=== PATIENT | female | born 1950 | race Caucasian/White ===

== ENCOUNTER → 2017-05-18 | Outpatient (CLI) | payer OTHER, BC ==
[~2017-05-18] MED LIST: ACT35; BP MED UNKNOWN; LOVA20TA4; MELO7.5T5; TRAM-10; [UNRECOGNIZED DRUG - OTHER]
--- NOTE | 2017-05-19 14:10 | MAMMOGRAPHY REPORT ---
BILATERAL DIGITAL SCREENING MAMMOGRAM TOMOSYNTHESIS WITH CAD: 05/18/2017 CLINICAL HISTORY: Routine screening. TECHNIQUE: Breast tomosynthesis in addition to standard 2D mammography was performed. Current study was also evaluated with a Computer Aided Detection (CAD) system. COMPARISON: Comparison is made to exams dated: 05/15/2016 mammogram, 05/13/2015 mammogram, 4 mammogram, 05/09/2013 mammogram, 05/03/2012 mammogram, and 04/22/2011 mammogram - [facility]. BREAST COMPOSITION: There are scattered areas of fibroglandular density in both breasts. FINDINGS: There are stable benign-appearing microcalcifications in the superior left breast. No susp icious mass, architectural distortion or cluster of suspicious microcalcifications is seen. IMPRESSION: ACR BI-RADS CATEGORY 1: NEGATIVE There is no mammographic evidence of malignancy. A 1 year screening mammogram is recommended. The pa tient will receive written notification of the results. Approximately 10% of breast cancers are not detected with mammography. A negative mammographic report should not delay biopsy if a clinically suggestive mass is present. Nadine Sawant M.D. ay/:05/18/2017 16:30:49 Production Control Analyst: Coy ARMENDARIZ(R)(M), [facility] letter sent: Normal 1/2 BI-RADS Code: ACR BI-RADS Category 1: Negative
== END | disposition home or self-care (01) ==
LOC: C.MAMM 10:11
PROVIDERS: ATTEND Family Medicine
DX: Z12.31 Encounter for screening mammogram for malignant neoplasm of breast (principal)

== ENCOUNTER 2024-04-29 09:20 | Inpatient (IN) ==
--- OUTSIDE RECORDS SUMMARY | 2024-04-29 09:27 | External Medical Summary | Summary of Care ---
Author Name Unknown Organization [facility] Address [address] [place] [address] Phone [phone] Care Team Providers Care Geriatrician Name Role Phone Wiley Hernandez MD Primary Care Provider Reason for Referral * Evaluate & Treat - Unlimited Visits (Within 10 days (routine)) - Authorized Specialty Diagnoses / Procedures Referred By Louis montero Referred To Contact Gastroenterology Diagnoses Pancreatitis Delores Fraser MD [address] [place] [id number] Phone: tel: fax: Josefina Miramontes, DO [address] [place] [address] Phone: tel: fax: Referral ID Status Reason Start Date Expiration Date Visits Requested Visits Authorized [id number] Authorized Specialty Services Required 4 [phone] Question Answer Referral Priority Within 10 days (routine) Where should this appointment be scheduled? [facility] For what condition is the patient being referred? All Gastro Conditions Comments Pancreatitis / stone Encounter Details Date Type Department Care Team (Late st Contact Info) Description 04/25/2024 Orders Only Access [facility], [address] *DO NOT REMOVE THIS DEPARTMENT* [place] [id number] Request, External Referral Pancreatitis* Allergies Active Allergy Reactions Criticality Noted Date Comments Adhesive Tape Rash 07/17/2013 documented as of this encounter (statuses as of 04/25/2024) Medications BENAZEPRIL-HYDR OCHLOROTHIAZIDE 20-25 MG PO TABS one pill each day Active AMLODIPINE BESYLATE 5 MG PO TABS one pill each day Active TEMAZEPAM 30 MG PO CAPS one pill each day at bedtime as needed Active triamcinolone acetonide (ARISTOCORT) 0.1 % cream Apply 1 Application Dosing Unit topically to affected area 2 times a day as needed. Active documented as of this encounter (statuses as of 04/25/2024) Active Problems Problem Noted Date Diagnosed Date Benign neoplasm of colon 06/07/2007 Overview (06/13/2007): adenomatous polyps--repeat 5 years Dyslipidemia, goal to be determined Menopause Contact dermatitis and other eczema due to other specified agent Overview (05/11/2007): non healing, scaling and blanching area on LLE-stable for 1 yr documented as of this encounter (statuses as of 04/25/2024) Resolved Problems Problem Noted Date Diagnosed Date Resolved Date ADVANCE DIRECTIVE INFORMATION 06/09/2006 04/03/2024 Overview (06/09/2006): No, Advance Directive brochure given to patient. documented as of this encounter (statuses as of 04/25/2024) Immunizations Name Administration Dates Next Due COVID-19 mRNA, LNP-s, No Pre serve, 2-Dose Series (Moderna) 07/31/2020,07/03/2020 documented as of this encounter Social History Tobacco Use Types Packs/Day Years Used Date Smoking Tobacco: Every Day Cigarettes 1 40 Alcohol Use Standard Drinks/Week Comments No 0 (1 standard drink = 0.6 oz pur e alcohol) Comments No Sex and Gender Information Value Date Recorded Sex Assigned at Not on file Legal Sex Female 5:56 AM EST Gender Identity Not on file Sexual Orientation Not on file documented as of this encounter Plan of Treatment Scheduled Procedures Name Priority Associated Diagnoses Date/Ti me COLONOSCOPY FLEXIBLE PROXIMAL DIAGNOSTIC Recall History of colon polyps Scheduled Referrals Name Type Priority Associated Diagnoses Order Schedule ADULT GASTROENTEROLOGY REFERRAL OP Referral Within 10 days (routine) Pancreatitis Ordered: 04/25/2024 Health Maintenance Due Date Last Done Comments Depression Screening 1960 Hepatitis C Screening 1966 DTap/Tdap Vaccines (1 - Tdap) 12/22/1967 Lung Cancer Screening 1998 DXA Scan 04/03/2011 04/03/2004 Colonoscopy 08/25/2023 08/24/2018, 07/30, 07/17/2013, Additional history exists COVID-19 Vaccine ( season) 2024 07/31/2020, 07/03/2020 Influenza Vaccine (FLU shot) (#1) 2024 03/26/2016 RETIRED - COLONOSCOPY-EVERY 5 YRS AGES 18-100 Discontinued 08/24/2018, 08/24/2018, 07/17/2013, Additional history exists Pneumococcal Vaccine: 65+ Years Completed 05/18/2019, 03/26/2016, 03/21/2014 Zoster Vaccines Completed 10/19/2019, 06/01, 07/21/2012 HPV (Gardasil) Vaccine Aged Out No lo nger eligible based on patient's age to complete this topic Hepatitis B Vaccine Aged Out No longe r eligible based on patient's age to complete this topic MENINGOCOCCAL (MENACTRA/MENVEO) Aged Out No longer eligible based on patient's age to complete this topic documented as of this encounter Medical Devices Not on filedocumented as of this encounter Visit Diagnoses Diagnosis Pancreatitis- Primary Acute pancreatitis documented in this encounter Care Teams Geriatrician Relationship Specialty Start Date End Date Wiley Hernandez MD [address] [place] [address], [place] [address] PCP - General 06/23/99 documented as of this encounter
[2024-04-29 09:58] LABS: Basophils # (auto) 0.05 K/uL (0.00-0.20); Basophils % (auto) 0.7 %; Eosinophils # (auto) 0.26 K/uL (0.00-0.50); Eosinophils % (auto) 3.6 %; Hematocrit (blood only) 45.7 % (37.0-47.0); Hemoglobin 15.4 g/dl (12.0-16.0); Immature Granulocytes # (auto) 0.02 K/uL (0.01-0.20); Immature Granulocytes % (auto) 0.3 %; Lymphocytes % (auto) 16.4 %; Mean Corpuscular Hemoglobin 30.1 pg (25.0-34.0); Mean Corpuscular Hgb Conc 33.7 g/dL (32.0-36.0); Mean Corpuscular Volume 89.3 fL (80.0-100.0); Mean Platelet Volume 8.7 fL (9.4-12.4); Monocytes # (auto) 0.59 K/uL (0.11-0.59); Monocytes % (auto) 8.1 %; Neutrophils # (auto) 5.18 K/uL (1.40-6.50); Neutrophils % (auto) 70.9 %; Platelet Count 509 K/uL (130-400); RDW Coefficient of Variation 12.7 % (11.5-14.5); RDW Standard Deviation 41.7 fL (36.4-46.3); Red Blood Count 5.12 M/uL (4.20-5.40)
--- NOTE | 2024-04-29 10:08 | Emergency Department Note ---
Impression & Plan Cellulitis, Failure of outpatient treatment ED Provider Note ED Provider Note NAME: LISSETTE PEOPLES AGE:73 SEX: Female : 1950 ARRIVES VIA: Private vehicle INFORMANT: Patient ED PROVIDER(s): Felisa Lynn DO CHIEF COMPLAINT: Worsening right arm infection HPI: This is a 73-year-old female who presents emerged department due to concern for worsening right arm infection. She states she was seen and evaluated here on Wednesday as she was concern for some redness at the wound and possible infection after a fall the week before. She states she otherwise felt as though she had been recovering well from the fall. She states she was started on cephalexin and doxycycline. She is also been applying bacitracin ointment. She states initially only antibiotic she had some improvement the first 2 days however yesterday it began to appear worse again. She denies any increased pain. She denies any accompanying systemic symptoms such as fevers or chills, dizziness, joint pain. She has had some mild nausea and diarrhea since starting the antibiotics. PAST MEDICAL HISTORY:See Below PAST SURGICAL HISTORY:See Below FAMILY HISTORY:See Below SOCIAL HISTORY:See Below HOME MEDICATIONS:See Below ALLERGIES:See Below VITALS:See Below PHYSICAL EXAMINATION: GENERAL: alert, well appearing, well nourished, no distress, non-toxic HEAD: nc, area of resolving ecchymosis noted to the right lateral forehead and right hinduism, no lay signs, no raccoon eyes EYE EXAM: normal conjunctiva, PERRL and EOM's grossly intact OROPHARYNX: no exudate, no erythema, lips, buccal mucosa, and tongue normal and mucous membranes are moist NECK: supple, no nuchal rigidity, no adenopathy, non-tender LUNGS: Clear to auscultation. Normal chest wall mechanics, no w/r/r HEART: no murmurs, S1 normal and S2 normal ABDOMEN: abdomen soft, non-tender, normo-active bowel sounds, no masses, no rebound or guarding. SKIN: no rashes, petechiae, orbruising UPPER EXTREMITIES: upper extremities are grossly normal. FROM, nml pulses b/l. Edema noted to the right upper extremity with area of skin tears and abrasions noted, hematoma noted along the dorsal aspect just inferior to the elbow that appears to have evolving yellowed content within the hematoma, no joint effusions, sensation intact bilaterally LOWER EXTREMITIES: No pitting edema. FROM, nml pulses b/l. NEURO EXAM: Normal sensorium, cranial nerves II-XII grossly intact, normal speech, no facial droop,nogross weakness of arms, no gross weakness of legs. Gross sensation intact. No ataxia. Vital Signs: reviewed and remarkable Differential Diagnosis: cellulitis, wound infection, abscess, septic arthritis, tenosynovitis, bursitis, nec fasc, as well as others were considered MEDICAL DECISION MAKING: This is a 73 yo female who presents to the ER with concern for worsening infection to the RUE after being started on antibiotics the beginning of the week. She was afebrile and VS stable. Labs drawn and sent, cultures added, IV established, area outlined with a sterile marking pen, xrays performed at bedside and interpreted by me. Case disucssed with ED pharmacist Bárbara and IV antibiotics added. No hx of MRSA. Patient not a diabetic. Due to failed outpatient tx and worsening cellulitis, case discussed with the hospitalist team for additional evaluation and mgmt. Consultation(s): 1140: Discussed with Dr. Choi, [facility] hospitalist team, for additional evaluation and management ER Treatment Provided: See below Diagnostics Interpreted By Me: -Cardiac Monitoring: An order was placed for continuous cardiac monitoring. The monitor shows a rate of [] with [] rhythm. -Laboratory studies: As stated above and show below. -Imaging studies: [] Triage Nursing Note Reviewed Prior/Outside Records Reviewed Past Med/Surg History Problem List (Updated 04/29/24 @ 12:49 by Carl Choi MD) Traumatic hematoma of right forearm Failure of outpatient treatment (Acute) Cellulitis (Acute) Cellulitis of right elbow (Acute) Migraine with aura Actinic keratosis BCC (basal cell carcinoma) [place] of foot Dermatitis, contact History of basal cell carcinoma Neoplasm of uncertain behavior of skin Sensorineural hearing loss (SNHL) of both ears Resistant hypertension Psoriasis Osteoporosis Hyponatremia Medical History Hyponatremia DDD (degenerative disc disease) Hearing deficit Osteoarthritis Anxiety HTN (hypertension) Surgical History Hx of cataract extraction History of wisdom tooth extraction History of appendectomy History of colonoscopy Family History Other No family history of adverse response to anesthesia Social History Smoking Status: Former smoker Age Started Using Tobacco: 16; Age Quit Using Tobacco: 71; packs per day: 1; Second Hand Exposure: No; Do You Dip or Chew Tobacco: No; Tobacco Cessation Education Requested by Patient: No Hx Alcohol Use: Yes Alcohol type: wine Alcohol Intake Frequency: 4 or More x per/Week Hx Substance Use: No Preferred Language: Citizen Of [place] Communication Ability: Effective Visual Impairment: No Limitations Hearing Ability: Use of Hearing Aid Rough Rib Grader Required: No Beliefs That Will Affect Care: None marital status: Current Living Situation: Spouse current occupational status: retired How many Children do You have: 2 Other Information That Helps Us Care for You: No Feels Safe at Home: Yes Safety Concerns: Feels Safe At This Time Diet: regular caffeine: Yes (coffee occasionally) Dental Care, Regularly: Yes Physical Activity Frequency: Does not Exercise Seatbelt Use: always Do you think of yourself as: straight/heterosexual Gender Identity: Female Assistive Devices: Glasses and Hearing Aid - Bilateral Allergies Allergies Allergy/AdvReac Type Severity Reaction Status Date / Time dimenhydrinate Allergy Swelling Verified 04/29/24 11:45 [From Dramamine] of Lip/Tongue/Throat gabapentin AdvReac Diarrhea Verified 04/29/24 11:45 shellfish derived AdvReac Verified 04/29/24 11:45 Home Meds Home Medications Medication Instructions Recorded Confirmed cholecalciferol (vitamin D3) 25 25 mcg PO QPM 07/22/22 04/29/24 mcg (1,000 unit) capsule temazepam 15 mg capsule (Restoril) 7.5 mg PO HS PRN Sleep 10/19/23 04/29/24 amlodipine 10 mg tablet 0 mg PO DAILY 04/29/24 04/29/24 benazepril 40 mg tablet 40 mg PO DAILY 04/29/24 04/29/24 erenumab-aooe 70 mg/mL 70 mg subcut UD 04/29/24 04/29/24 subcutaneous auto-injector (Aimovig Autoinjector) escitalopram oxalate 10 mg tablet 10 mg PO DAILY 04/29/24 04/29/24 famotidine 20 mg tablet 20 mg PO DAILY 04/29/24 04/29/24 ondansetron HCl 4 mg tablet 4 mg PO TID PRN Nausea And Vomiting 04/29/24 04/29/24 ubrogepant 100 mg tablet (Ubrelvy) 100 mg PO UD PRN migraine headache 04/29/24 04/29/24 Previous Rx's Medication Instructions Recorded zoledronic acid 5 mg/100 mL in 5 ea IV YEARLY #100 mL 03/05/23 mannitol 5 %-water intravenous piggybck (Reclast) metoprolol succinate 25 mg 25 mg PO DAILY #90 tabs 08/12/23 tablet,extended release 24 hr magnesium glycinate 400 mg (4 x 100 mg magnesium) PO 10/06/23 DAILY #30 caps riboflavin (vitamin B2) 400 mg 400 mg PO DAILY #30 tabs 10/06/23 tablet ketorolac 10 mg tablet 10 mg PO Q8H PRN pain 30 days #20 02/29/24 tabs cephalexin 500 mg capsule 500 mg PO QID 7 days #28 caps 04/24/24 doxycycline hyclate 100 mg capsule 100 mg PO BID 7 days #14 caps 04/24/24 Results & Data (ED) Vital Signs Vital Signs - 24 hr 04/29/24 09:26 04/29/24 09:42 04/29/24 09:46 Temperature 36.7 C Temperature Source Oral Pulse Rate 75 75 Pulse Rate [Apical] 66 Pulse Rhythm Regular Pulse Rhythm [Apical] Regular Pulse Strength Normal Pulse Strength [Apical] Normal Respiratory Rate 20 18 Respiratory Effort / Characteristics Non-Labored Spontaneous Non-Labored Spontaneous Respiratory Depth Normal Normal Respiratory Pattern Regular Regular Blood Pressure 133/76 Blood Pressure [Left Arm] 113/73 Blood Pressure Mean 95 Blood Pressure Mean [Left Arm] 86 Blood Pressure Position Sitting Blood Pressure Position [Left Arm] Semi-fowlers Pulse Oximetry 93 95 Oxygen Delivery Method Room Air Room Air Sepsis Recent Fever Within 48 Hours No Sepsis New/Unexplained Change in Mental Status N/A Sepsis Action Taken by Nursing No Action Required 04/29/24 10:55 04/29/24 11:18 Temperature Temperature Source Pulse Rate Pulse Rate [Apical] 57 L 62 Pulse Rhythm Pulse Rhythm [Apical] Regular Regular Pulse Strength Pulse Strength [Apical] Normal Normal Respiratory Rate 18 20 Respiratory Effort / Characteristics Non-Labored Spontaneous Non-Labored Spontaneous Respiratory Depth Normal Normal Respiratory Pattern Regular Regular Blood Pressure Blood Pressure [Left Arm] 142/73 H 164/79 H Blood Pressure Mean Blood Pressure Mean [Left Arm] 96 107 Blood Pressure Position Blood Pressure Position [Left Arm] Semi-fowlers Semi-fowlers Pulse Oximetry 93 Oxygen Delivery Method Room Air Sepsis Recent Fever Within 48 Hours Sepsis New/Unexplained Change in Mental Status Sepsis Action Taken by Nursing Laboratory Data 04/29/24 09:40 04/30/24 05:24 Lab Results 04/29/24 Range/Units 09:40 WBC 7.30 (4.8-10.8) K/ul RBC 5.12 (4.20-5.40) M/uL Hgb 15.4 (12.0-16.0) g/dl Hct 45.7 (37.0-47.0) % MCV 89.3 (80.0-100.0) fL MCH 30.1 (25.0-34.0) pg MCHC 33.7 (32.0-36.0) g/dL RDW Std Deviation 41.7 (36.4-46.3) fL RDW Coeff of Carol 12.7 (11.5-14.5) % Plt Count 509 H (130-400) K/uL MPV 8.7 L (9.4-12.4) fL Immature Gran % (Auto) 0.3 % Neut % (Auto) 70.9 % Lymph % (Auto) 16.4 % [place] % (Auto) 8.1 % Eos % (Auto) 3.6 % Baso % (Auto) 0.7 % Neut # (Auto) 5.18 (1.40-6.50) K/uL Lymph # (Auto) 1.20 (1.20-3.40) K/uL [place] # (Auto) 0.59 (0.11-0.59) K/uL Eos # (Auto) 0.26 (0.00-0.50) K/uL Baso # (Auto) 0.05 (0.00-0.20) K/uL Immature Gran # (Auto) 0.02 (0.01-0.20) K/uL PT 10.7 (9.0-12.0) Seconds INR 1.0 (0.9-1.1) Sodium 138 (136-145) mmol/L Potassium 3.9 (3.5-5.1) mmol/L Chloride 99 (98-107) mmol/L Carbon Dioxide 30 (21-32) mmol/L Anion Gap 9 (3-11) BUN 11 (6-23) mg/dl Creatinine 0.64 (0.6-1.2) mg/dl Est Cr Clr Drug Dosing 60.4 ml/min eGFR 92.10 BUN/Creatinine Ratio 17.2 (10-20) Glucose 133 H (70-99(Fasting)) mg/dl Calcium 9.6 (8.6-10.3) mg/dl Magnesium 1.9 (1.7-2.4) mg/dl Total Bilirubin 0.7 (0.2-1.0) mg/dl AST 17 (13-39) U/L ALT 11 (7-52) U/L Alkaline Phosphatase 70 (34-104) U/L Total Protein 7.9 (6.0-8.3) gm/dl Albumin 4.4 (3.4-5.0) gm/dl Globulin 3.5 (2.5-4.0) gm/dl Albumin/Globulin Ratio 1.3 (0.9-2) Administered Medications Acetaminophen (Acetaminophen 325 Mg Tab) 650 mg PO Q4H PRN PRN Reason: pain/fever Stop: 05/29/24 12:59 Last Admin: 04/30/24 15:55 Dose: 650 mg Documented By: Admin: 04/30/24 08:49 Dose: 650 mg Documented By: Admin: 04/29/24 20:04 Dose: 650 mg Documented By: Admin: 04/29/24 14:05 Dose: 650 mg Documented By: ROSA Amlodipine Besylate (Amlodipine Besylate 5 Mg Tab) 10 mg PO HS JONATHAN Stop: 05/29/24 20:59 Last Admin: 04/30/24 20:14 Dose: 10 mg Documented By: Admin: 04/29/24 21:51 Dose: 10 mg Documented By: KARLA Enalapril Maleate (Enalapril Maleate 10 Mg Tab) 20 mg PO HS JONATHAN Stop: 05/29/24 20:59 Last Admin: 04/30/24 20:15 Dose: 20 mg Documented By: Admin: 04/29/24 21:50 Dose: 20 mg Documented By: KARLA Escitalopram Oxalate (Escitalopram Oxalate 10 Mg Tab) 10 mg PO HS JONATHAN Stop: 05/29/24 20:59 Last Admin: 04/30/24 20:16 Dose: 10 mg Documented By: Admin: 04/29/24 21:50 Dose: 10 mg Documented By: PNDenita Famotidine (Famotidine 20 Mg Tab) 20 mg PO HS JONATHAN Stop: 05/29/24 20:59 Last Admin: 04/30/24 20:16 Dose: 20 mg Documented By: Admin: 04/29/24 21:50 Dose: 20 mg Documented By: PNDenita Ceftriaxone Sodium (Rocephin) 2,000 mg in 50 mls @ 100 mls/hr IV Q24H JONATHAN Stop: 05/07/24 10:59 Last Infusion: 04/30/24 11:37 Dose: Infused Documented By: Admin: 04/30/24 10:36 Dose: 100 mls/hr Documented By: SAMINA Vancomycin HCl 750 mg/ Sodium (Chloride) 265 mls @ 200 mls/hr IV Q12H JONATHAN Stop: 05/06/24 20:59 Last Infusion: 04/30/24 21:39 Dose: Infused Documented By: Admin: 04/30/24 20:08 Dose: 200 mls/hr Documented By: Infusion: 04/30/24 10:10 Dose: Infused Documented By: Admin: 04/30/24 08:35 Dose: 200 mls/hr Documented By: Infusion: 04/29/24 23:35 Dose: Infused Documented By: Admin: 04/29/24 21:49 Dose: 200 mls/hr Documented By: KARLA Magnesium Oxide (Magnesium Oxide 400 Mg Tab) 400 mg PO DAILY JONATHAN Stop: 05/30/24 08:59 Last Admin: 04/30/24 08:33 Dose: 400 mg Documented By: SAMINA Metoprolol Succinate (Metoprolol Succ 25mg Ext Rel Tab) 25 mg PO HS JONATHAN Stop: 05/29/24 20:59 Last Admin: 04/30/24 20:16 Dose: 25 mg Documented By: Admin: 04/29/24 21:50 Dose: 25 mg Documented By: KARLA Discontinued Medications Vancomycin HCl 1,250 mg/ (Sodium Chloride) 525 mls @ 200 mls/hr IV NOW ONE Stop: 04/29/24 13:23 Last Infusion: 04/29/24 16:00 Dose: Infused Documented By: Admin: 04/29/24 13:05 Dose: 200 mls/hr Documented By: ROSA Ceftriaxone Sodium (Rocephin) 2,000 mg in 50 mls @ 100 mls/hr IV NOW STA Stop: 04/29/24 11:15 Last Infusion: 04/29/24 12:24 Dose: Infused Documented By: Admin: 04/29/24 11:10 Dose: 100 mls/hr Documented By: MSG Imaging Data Radiologist's Impression: Elbow X-Ray 04/29/24 10:00 EXAM: Radiographs of the Right Elbow Complete 3 Views INDICATION: Fall 10 days ago. Pain. TECHNIQUE: Frontal, lateral and oblique views of the right elbow. COMPARISON: No relevant prior studies available. FINDINGS: Bones/joints: No fracture, erosion or dislocation. Soft tissues: Diffuse soft tissue swelling noted. No soft tissue gas collection or radiopaque foreign body. There is a 2.2 cm diameter soft tissue nodule centered in the skin of the forearm at the level of the proximal radial shaft. IMPRESSION: 1. No fracture. 2. Soft tissue swelling. Nodular opacity associated with the skin lateral proximal forearm. Correlate clinically for mass versus hematoma. ACT 112: Negative or not required by law. Electronically signed by Desiree Vega 04-29-2024 11:08 AM Forearm X-Ray 04/29/24 10:00 EXAM: Radiographs of the Right Forearm 2 Views INDICATION: Fall 10 days ago. TECHNIQUE: Frontal and lateral views of the right forearm. COMPARISON: No relevant prior studies available. FINDINGS: Bones/joints: There is mild narrowing of the radiocarpal joint. There is moderate primary osteoarthritic changes of the first carpometacarpal joint. Soft tissues: 2 cm nodular cutaneous opacity mid forearm. Correlate clinically for cutaneous nodule versus something upon the skin. Diffuse soft tissue swelling noted. There is no soft tissue gas collection. No radiopaque foreign body. IMPRESSION: 1. No forearm fracture. 2. 2 cm nodular cutaneous opacity mid forearm. Correlate clinically for cutaneous nodule versus something upon the skin. ACT 112: Negative or not required by law. Electronically signed by Desiree Vega 04-29-2024 11:10 AM Discharge Plan Visit Data Chief Complaint: Infection Stated Complaint: CELLULITIS ON R ARM, WORSENING INFECTION ED Provider: Felisa Lynn Discharge Problem: Cellulitis, Failure of outpatient treatment Patient Disposition: Admitted As Inpatient Discharge Instructions Interventions: ED Discharge Assessment Last Done: 04/29/24 12:56 Discharge Problem: Cellulitis Qualifiers: Site of cellulitis: extremity Site of cellulitis of extremity: upper extremity Laterality: right Qualified Code(s): L03.113 - Cellulitis of right upper limb
[2024-04-29 10:23] LABS: Albumin Level 4.4 gm/dl (3.4-5.0); Bilirubin,Total 0.7 mg/dl (0.2-1.0); Calcium 9.6 mg/dl (8.6-10.3); Magnesium 1.9 mg/dl (1.7-2.4); Potassium 3.9 mmol/L (3.5-5.1)
[2024-04-29 10:25] LABS: Prothrombin Time 10.7 Seconds (9.0-12.0)
[2024-04-29 10:29] LABS: Albumin Globulin Ratio 1.3 (0.9-2); BUN Creatinine Ratio 17.2 (10-20); Creatinine Clr Calc Pharmacy 60.4 ml/min; Globulin 3.5 gm/dl (2.5-4.0); Total Protein 7.9 gm/dl (6.0-8.3)
[2024-04-29] MEDS ORDERED: VANCOMYCIN CONSULT ACTIVE PRN (10:46)
--- NOTE | 2024-04-29 11:08 | XRay Report ---
EXAM: Radiographs of the Right Elbow Complete 3 Views INDICATION: Fall 10 days ago. Pain. TECHNIQUE: Frontal, lateral and oblique views of the right elbow. COMPARISON: No relevant prior studies available. FINDINGS: Bones/joints: No fracture, erosion or dislocation. Soft tissues: Diffuse soft tissue swelling noted. No soft tissue gas collection or radiopaque foreign body. There is a 2.2 cm diameter soft tissue nodule centered in the skin of the forearm at the level of the proximal radial shaft. IMPRESSION: 1. No fracture. 2. Soft tissue swelling. Nodular opacity associated with the skin lateral proximal forearm. Correlate clinically for mass versus hematoma. ACT 112: Negative or not required by law. Electronically signed by Desiree Vega 04-29-2024 11:08 AM
[2024-04-29] MEDS: cefTRIAXone SODIUM 2,000 MG/50 ML BAG IV STA (11:10)
--- NOTE | 2024-04-29 11:10 | XRay Report ---
EXAM: Radiographs of the Right Forearm 2 Views INDICATION: Fall 10 days ago. TECHNIQUE: Frontal and lateral views of the right forearm. COMPARISON: No relevant prior studies available. FINDINGS: Bones/joints: There is mild narrowing of the radiocarpal joint. There is moderate primary osteoarthritic changes of the first carpometacarpal joint. Soft tissues: 2 cm nodular cutaneous opacity mid forearm. Correlate clinically for cutaneous nodule versus something upon the skin. Diffuse soft tissue swelling noted. There is no soft tissue gas collection. No radiopaque foreign body. IMPRESSION: 1. No forearm fracture. 2. 2 cm nodular cutaneous opacity mid forearm. Correlate clinically for cutaneous nodule versus something upon the skin. ACT 112: Negative or not required by law. Electronically signed by Desiree Vega 04-29-2024 11:10 AM
--- NOTE | 2024-04-29 12:51 | History & Physical Report ---
Date of Service April 29, 2024 Assessment & Plan (1) Cellulitis: Plan: Vancomycin + ceftriaxone Elevated right upper extremity q shift If continues to progress will need pseudomonas coverage (2) Traumatic hematoma of right forearm: Plan: Needle aspirated as some pus present in the ER to send off for culture. Picture above taken prior to aspiration. Consult surgery for decision regarding incision and drainage (3) Failure of outpatient treatment: Plan: Failed Keflex/doxycycline outpatient Suspected MRSA vs source control vs. reaction to Bacitracin as reason for failure Plan HTN - Continue metoprolol, switch benzapril to enalapril per hospital pharmacy, continue amlodipine GERD - continue famotidine Anxiety - continue Lexapro VTE Prophylaxis - deferred due to hematoma present Diet - regular Disposition - admit to med/surg Admission and Anticipated Discharge Date Admission Date: April 29, 2024 History of Present Illness Chief Complaint: Right arm erythema and swelling Primary Care Provider: Delores Fraser MD Ondina Steinberg is a 73 year old female who presents to the ER with right arm erythema and swelling. No fever or chills. This started after a fall on 04/17 and she scraped her arm and tore her skin. No loss of consciousness or hitting her head. She came to the ER on 04/24 and was diagnosed with cellulitis and started on doxycycline and Keflex which she reports taking as prescribed. Despite this her erythema and swelling has progressed over the last few days and now with a small bloody blister present with some pus formation. Allergies Allergy/AdvReac Type Severity Reaction Status Date / Time dimenhydrinate Allergy Swelling Verified 04/29/24 11:45 [From Dramamine] of Lip/Tongue/Throat gabapentin AdvReac Diarrhea Verified 04/29/24 11:45 shellfish derived AdvReac Verified 04/29/24 11:45 Home Medications Medication Instructions Recorded Confirmed Type cholecalciferol (vitamin D3) 25 25 mcg PO QPM 07/22/22 04/29/24 History mcg (1,000 unit) capsule zoledronic acid 5 mg/100 mL in 5 ea IV YEARLY #100 mL 03/05/23 04/29/24 Rx mannitol 5 %-water intravenous piggybck (Reclast) metoprolol succinate 25 mg 25 mg PO DAILY #90 tabs 08/12/23 04/29/24 Rx tablet,extended release 24 hr magnesium glycinate 400 mg (4 x 100 mg magnesium) PO 10/06/23 04/29/24 Rx DAILY #30 caps riboflavin (vitamin B2) 400 mg 400 mg PO DAILY #30 tabs 10/06/23 04/29/24 Rx tablet temazepam 15 mg capsule (Restoril) 7.5 mg PO HS PRN Sleep 10/19/23 04/29/24 History ketorolac 10 mg tablet 10 mg PO Q8H PRN pain 30 days #20 02/29/24 04/29/24 Rx tabs cephalexin 500 mg capsule 500 mg PO QID 7 days #28 caps 04/24/24 04/29/24 Rx doxycycline hyclate 100 mg capsule 100 mg PO BID 7 days #14 caps 04/24/24 04/29/24 Rx amlodipine 10 mg tablet 0 mg PO DAILY 04/29/24 04/29/24 History benazepril 40 mg tablet 40 mg PO DAILY 04/29/24 04/29/24 History erenumab-aooe 70 mg/mL 70 mg subcut UD 04/29/24 04/29/24 History subcutaneous auto-injector (Aimovig Autoinjector) escitalopram oxalate 10 mg tablet 10 mg PO DAILY 04/29/24 04/29/24 History famotidine 20 mg tablet 20 mg PO DAILY 04/29/24 04/29/24 History ondansetron HCl 4 mg tablet 4 mg PO TID PRN Nausea And Vomiting 04/29/24 04/29/24 History ubrogepant 100 mg tablet (Ubrelvy) 100 mg PO UD PRN migraine headache 04/29/24 04/29/24 History Past Med/Surg History Problem List (Updated 04/29/24 @ 12:49 by Carl Choi MD) Traumatic hematoma of right forearm Failure of outpatient treatment (Acute) Cellulitis (Acute) Cellulitis of right elbow (Acute) Migraine with aura Actinic keratosis BCC (basal cell carcinoma) Independence of foot Dermatitis, contact History of basal cell carcinoma Neoplasm of uncertain behavior of skin Sensorineural hearing loss (SNHL) of both ears Resistant hypertension Psoriasis Osteoporosis Hyponatremia Medical History Hyponatremia DDD (degenerative disc disease) Hearing deficit Osteoarthritis Anxiety HTN (hypertension) Surgical History Hx of cataract extraction History of wisdom tooth extraction History of appendectomy History of colonoscopy Family History Other No family history of adverse response to anesthesia Social History Smoking Status: Former smoker Age Started Using Tobacco: 16; Age Quit Using Tobacco: 71; packs per day: 1; Second Hand Exposure: No; Do You Dip or Chew Tobacco: No; Tobacco Cessation Education Requested by Patient: No Hx Alcohol Use: Yes Alcohol type: wine Alcohol Intake Frequency: 4 or More x per/Week Hx Substance Use: No Preferred Language: Greek Communication Ability: Effective Visual Impairment: No Limitations Hearing Ability: Use of Hearing Aid Reporting Specialist Required: No Beliefs That Will Affect Care: None marital status: Current Living Situation: Spouse current occupational status: retired How many Children do You have: 2 Other Information That Helps Us Care for You: No Feels Safe at Home: Yes Safety Concerns: Feels Safe At This Time Diet: regular caffeine: Yes (coffee occasionally) Dental Care, Regularly: Yes Physical Activity Frequency: Does not Exercise Seatbelt Use: always Do you think of yourself as: straight/heterosexual Gender Identity: Female Assistive Devices: Glasses and Hearing Aid - Bilateral Review of Systems 2 Review of Systems: All systems reviewed & are unremarkable except as noted in HPI & below Physical Exam 2 Constitutional: WD/WN, vitals as above ENMT: external ear and nose normal, oropharynx normal Respiratory: normal respiratory effort, lungs clear to auscultation Cardiovascular: RRR, no murmur, no edema Gastrointestinal (Abdomen): normal bowel sounds, soft, nontender, no hepatosplenomegaly Skin: Erythema and swelling from mid right upper arm to wrist with small hematoma present with some pus formation, open aldo on inside part of elbow as can be seen by pictures below. No olecranon fluctuance Neurologic: moves all extremities and awake; not confused Results & Data Results & Data Vital Signs (Past 12 Hours) Vital Signs Temp Pulse Pulse Resp BP BP Pulse Ox 04/29/24 11:18 62 20 164/79 H 04/29/24 10:55 57 L 18 142/73 H 93 04/29/24 09:46 66 18 113/73 95 04/29/24 09:42 75 04/29/24 09:26 36.7 C 75 20 133/76 93 O2 Del Method 04/29/24 11:18 04/29/24 10:55 Room Air 04/29/24 09:46 Room Air 04/29/24 09:42 04/29/24 09:26 Room Air Laboratory Results Abnormal lab results 04/29/24 Range/Units 09:40 Plt Count 509 H (130-400) K/uL MPV 8.7 L (9.4-12.4) fL Glucose 133 H (70-99(Fasting)) mg/dl Diagnostic Findings Radiographs of the Right Forearm 2 Views INDICATION: Fall 10 days ago. TECHNIQUE: Frontal and lateral views of the right forearm. COMPARISON: No relevant prior studies available. FINDINGS: Bones/joints: There is mild narrowing of the radiocarpal joint. There is moderate primary osteoarthritic changes of the first carpometacarpal joint. Soft tissues: 2 cm nodular cutaneous opacity mid forearm. Correlate clinically for cutaneous nodule versus something upon the skin. Diffuse soft tissue swelling noted. There is no soft tissue gas collection. No radiopaque foreign body. IMPRESSION: 1. No forearm fracture. 2. 2 cm nodular cutaneous opacity mid forearm. Correlate clinically for cutaneous nodule versus something upon the skin. Radiographs of the Right Elbow Complete 3 Views INDICATION: Fall 10 days ago. Pain. TECHNIQUE: Frontal, lateral and oblique views of the right elbow. COMPARISON: No relevant prior studies available. FINDINGS: Bones/joints: No fracture, erosion or dislocation. Soft tissues: Diffuse soft tissue swelling noted. No soft tissue gas collection or radiopaque foreign body. There is a 2.2 cm diameter soft tissue nodule centered in the skin of the forearm at the level of the proximal radial shaft. IMPRESSION: 1. No fracture. 2. Soft tissue swelling. Nodular opacity associated with the skin lateral proximal forearm. Correlate clinically for mass versus hematoma. Medications Administered ER Medications Given: Vancomycin 1250mg IV Ceftriaxone 2000mg IV ECG Additional Comments: Not performed Code Status & VTE Plan Code Status Full VTE Prophylaxis Plan VTE Prophylaxis will be ordered: Yes PG Care Time/CCT Total # of Minutes Spent Total Time Spent with Patient: Total time spent is greater than 50% in coordination of care (as documented) at patient's floor/unit and/or counseling patient: Coding Level of Care Code 06328 INT INP/OBS CARE MIN Diagnoses Cellulitis of right upper extremity L03.113 Laterality: right Site of cellulitis: extremity Site of cellulitis of extremity: upper extremity Traumatic hematoma of right forearm S50.11XA Failure of outpatient treatment Z78.9 (1) Cellulitis Laterality: right Site of cellulitis: extremity Site of cellulitis of extremity: upper extremity Qualified Code(s): L03.113 - Cellulitis of right upper limb
[2024-04-29] MEDS: VANCOMYCIN HCL 1,250 MG in SODIUM CHLORIDE 0.9% 500 ML IV ONE (13:05)
--- NOTE | 2024-04-29 13:44 | Pharmacy Report ---
Pharmacy PK ABX Note - Date of Service April 29, 2024 - Assessment and Plan Assessment 73 year old F receiving vancomycin and ceftriaxone for treatment of cellulitis. Failed outpatient therapy (cephalexin + doxycycline). Cultures pending. Renal function stable. Day #1 of antimicrobial therapy. Plan Vancomycin * Loading dose: 1250 mg IV x 1 * Maintenance dose: 750 mg IV every 12 hours * Regimen is predicted to achieve target AUC/CLAUDY of 400-600 mg/L.hr * Will obtain a level after ~ 48h of therapy, or sooner if clinically indicated Pharmacy will continue to follow and will adjust dose/frequency as necessary. Thank you. Pharmacy has transitioned to AUC monitoring for vancomycin. AUC/CLAUDY is the preferred PK/PD target and is associated with decreased risk of nephrotoxicity compared to traditional trough targets.
[2024-04-29] MEDS: ACETAMINOPHEN 325 MG TAB PO PRN (14:05)
[2024-04-29] MEDS ORDERED: TEMAZEPAM 7.5 MG CAPSULE PO PRN (14:20)
[2024-04-29] MEDS ORDERED: IBUPROFEN 200 MG TAB PO PRN (14:22)
[2024-04-29] MEDS: VANCOMYCIN 750 MG in SODIUM CHLORIDE 0.9% 250 ML IV SCH (21:49)
[2024-04-29] MEDS: METOPROLOL SUCC 25MG EXT REL TAB PO SCH (21:50)
[2024-04-29] MEDS: ENALAPRIL MALEATE 10 MG TAB PO SCH (21:50)
[2024-04-29] MEDS: FAMOTIDINE 20 MG TAB PO SCH (21:50)
[2024-04-29] MEDS: ESCITALOPRAM OXALATE 10 MG TAB PO SCH (21:50)
[2024-04-29] MEDS: amLODIPine BESYLATE 5 MG TAB PO SCH (21:51)
[2024-04-30 05:55] LABS: Creatinine Clr Calc Pharmacy 103.6 ml/min
[2024-04-30] MEDS: MAGNESIUM OXIDE 400 MG TAB PO SCH (08:33)
--- NOTE | 2024-04-30 09:50 | Surgery Consultation ---
Date of Consultation April 30, 2024 Assessment & Plan (1) Cellulitis: Agree with IV abx monitor progress no obvious fluctuance consider US of right extremity possible I&D if does not completely respond to IV abx (2) Traumatic hematoma of right forearm: History of Present Illness Attending Physician: Emelia Tran MD History of Present Illness This is a 73YO female with right arm cellulitis and possible abscess after a fall. She was placed on oral antibiotics. The erythema worsened on the oral regimen. She denies any increased pain. She denies any accompanying systemic symptoms such as fevers or chills, dizziness, joint pain. Allergies Allergy/AdvReac Type Severity Reaction Status Date / Time dimenhydrinate Allergy Swelling Verified 04/29/24 11:45 [From Dramamine] of Lip/Tongue/Throat gabapentin AdvReac Diarrhea Verified 04/29/24 11:45 shellfish derived AdvReac Verified 04/29/24 11:45 Home Medications Medication Instructions Recorded Confirmed Type cholecalciferol (vitamin D3) 25 25 mcg PO QPM 07/22/22 04/29/24 History mcg (1,000 unit) capsule zoledronic acid 5 mg/100 mL in 5 ea IV YEARLY #100 mL 03/05/23 04/29/24 Rx mannitol 5 %-water intravenous piggybck (Reclast) metoprolol succinate 25 mg 25 mg PO DAILY #90 tabs 08/12/23 04/29/24 Rx tablet,extended release 24 hr magnesium glycinate 400 mg (4 x 100 mg magnesium) PO 10/06/23 04/29/24 Rx DAILY #30 caps riboflavin (vitamin B2) 400 mg 400 mg PO DAILY #30 tabs 10/06/23 04/29/24 Rx tablet temazepam 15 mg capsule (Restoril) 7.5 mg PO HS PRN Sleep 10/19/23 04/29/24 History ketorolac 10 mg tablet 10 mg PO Q8H PRN pain 30 days #20 02/29/24 04/29/24 Rx tabs cephalexin 500 mg capsule 500 mg PO QID 7 days #28 caps 04/24/24 04/29/24 Rx doxycycline hyclate 100 mg capsule 100 mg PO BID 7 days #14 caps 04/24/24 04/29/24 Rx amlodipine 10 mg tablet 0 mg PO DAILY 04/29/24 04/29/24 History benazepril 40 mg tablet 40 mg PO DAILY 04/29/24 04/29/24 History erenumab-aooe 70 mg/mL 70 mg subcut UD 04/29/24 04/29/24 History subcutaneous auto-injector (Aimovig Autoinjector) escitalopram oxalate 10 mg tablet 10 mg PO DAILY 04/29/24 04/29/24 History famotidine 20 mg tablet 20 mg PO DAILY 04/29/24 04/29/24 History ondansetron HCl 4 mg tablet 4 mg PO TID PRN Nausea And Vomiting 04/29/24 04/29/24 History ubrogepant 100 mg tablet (Ubrelvy) 100 mg PO UD PRN migraine headache 04/29/24 04/29/24 History Patient History Medical History Hyponatremia DDD (degenerative disc disease) Hearing deficit Osteoarthritis Anxiety HTN (hypertension) Surgical History Hx of cataract extraction History of wisdom tooth extraction History of appendectomy History of colonoscopy Family History Other No family history of adverse response to anesthesia Social History Smoking Status: Former smoker Age Started Using Tobacco: 16; Age Quit Using Tobacco: 71; packs per day: 1; Second Hand Exposure: No; Do You Dip or Chew Tobacco: No; Tobacco Cessation Education Requested by Patient: No Hx Alcohol Use: Yes Alcohol type: wine Alcohol Intake Frequency: 4 or More x per/Week Hx Substance Use: No Preferred Language: Amharic Communication Ability: Effective Visual Impairment: No Limitations Hearing Ability: Use of Hearing Aid Scholastic Aptitude Test Grader Required: No Beliefs That Will Affect Care: None marital status: Current Living Situation: Spouse current occupational status: retired How many Children do You have: 2 Other Information That Helps Us Care for You: No Feels Safe at Home: Yes Safety Concerns: Feels Safe At This Time Diet: regular caffeine: Yes (coffee occasionally) Dental Care, Regularly: Yes Physical Activity Frequency: Does not Exercise Seatbelt Use: always Do you think of yourself as: straight/heterosexual Gender Identity: Female Assistive Devices: Glasses and Hearing Aid - Bilateral Review of Systems Constitutional: no fever, no chills and no anorexia Eyes: no problem reported Ear, Nose, Mouth, Throat: no problem reported Respiratory: no cough and no dyspnea Cardiovascular: no chest pain Gastrointestinal: + nausea; no abdominal pain, no vomiting and no change in bowel habits Genitourinary: no dysuria Musculoskeletal: no joint pain and no problem reported Integumentary: + non-healing lesions, + erythema and + unusual bruising Neurologic: no localized weakness Psychiatric: no behavioral changes Endocrine: no problem reported Hematologic / Lymphatic: + easy bleeding and + easy bruising Physical Exam Constitutional: WD/WN, vitals as above Eyes: PERRL, conjunctivae normal, anicteric sclerae ENMT: external ear and nose normal, oropharynx normal Neck: trachea midline Respiratory: normal respiratory effort, lungs clear to auscultation Cardiovascular: RRR, no murmur, no edema Gastrointestinal (Abdomen): Inspection/Auscultation: abdomen normal to inspection and normal bowel sounds; abdomen not distended Percussion/Palpation: abdomen soft; abdomen nontender Musculoskeletal: Head/Neck/Chest: normocephalic Extremities: + upper extremity abnormal to inspection (hematoma and cellulitis; no fluctuance) Right Skin: no rashes, warm and dry Results & Data Vital Signs (Past 12 Hours) Vital Signs Temp Pulse Resp BP Pulse Ox O2 Del Method 04/30/24 06:59 36.6 C 57 L 16 153/79 H 92 Room Air (1) Cellulitis Laterality: right Site of cellulitis: extremity Site of cellulitis of extremity: upper extremity Qualified Code(s): L03.113 - Cellulitis of right upper limb
[2024-04-30] MEDS: cefTRIAXone SODIUM 2,000 MG/50 ML BAG IV SCH (10:36)
--- NOTE | 2024-04-30 15:49 | Hospitalist Progress Note ---
Date of Service April 30, 2024 Assessment & Plan (1) Cellulitis: Plan: 73-year-old who had a recent skin tear and abrasion of right upper extremity complicated by a cellulitis that did not improve with oral Keflex and doxycycline. Admitted for IV antibiotics and further evaluation culture of some drainage from right forearm was taken in the EDreviewed Gram stain which showed white cells only, culture pending. blood cultures no growth to date at 24 hours continue vancomycin and ceftriaxone, extremity needs to be elevated discussed with patient and nursing staff. broaden coverage if not improving but it is too early to tell at this point consulted general surgery, reviewed recommendations in their notecontinue antibiotics, consider ultrasound she warrants continued hospitalization for intravenous antibiotics and serial examination (2) Traumatic hematoma of right forearm: Plan: Needle aspirated as some pus present in the ER to send off for culture. Picture above taken prior to aspiration. see above (3) Failure of outpatient treatment: Plan HTN - Continue metoprolol, switch benzapril to enalapril per hospital pharmacy, continue amlodipine GERD - continue famotidine Anxiety - continue Lexapro VTE Prophylaxis - SCDs - acceptable to start chemoprophylaxis in a.m. I updated her at bedside today Admission and Anticipated Discharge Date Admission Date: April 29, 2024 Subjective RUE erythema, pain, swelling seems about the same to her today surgery team rounded prior to me, possible ultrasound Physical Exam 2 Physical Exam: PHYSICAL EXAMINATION Last 24h vital signs reviewed, see documentation in flowsheet General: comfortable appearing, no distress HEENT: Normocephalic, atraumatic, pupils round and equal, sclerae anicteric, no conjunctival injection, moist mucus membranes Lungs: Normal respiratory effort. Heart: deferred Abdomen: nondistended Extremities: Warm, dry, well-perfused. severe cellulitis right forearm with skin tear proximal forearm and some abrasions covered by eschar distal right forearm. extends from somewhat above the elbow where there is some patchy erythema down to the wrist area, has not extended past markings from ED but not significantly receded Neuro: Alert and oriented x 4, face symmetric, moves 4 extremities well Psych: Normal affect and behavior Results & Data Results & Data Vital Signs (Past 12 Hours) Vital Signs Temp Pulse Resp BP Pulse Ox O2 Del Method 04/30/24 15:08 97.7 F 61 16 159/81 H 96 Room Air 04/30/24 06:59 97.9 F 57 L 16 153/79 H 92 Room Air Laboratory Results 04/29/24 09:40 04/30/24 05:24 PG Care Time/CCT Total # of Minutes Spent Total Time Spent with Patient: Total time spent is greater than 50% in coordination of care (as documented) at patient's floor/unit and/or counseling patient: Coding Level of Care Code 69132 SUB INP/OBS CARE 2/35MIN Diagnoses Cellulitis of right upper extremity L03.113 Laterality: right Site of cellulitis: extremity Site of cellulitis of extremity: upper extremity Traumatic hematoma of right forearm S50.11XA Failure of outpatient treatment Z78.9 (1) Cellulitis Laterality: right Site of cellulitis: extremity Site of cellulitis of extremity: upper extremity Qualified Code(s): L03.113 - Cellulitis of right upper limb
[2024-05-01 06:04] LABS: Creatinine Clr Calc Pharmacy 93.5 ml/min
--- NOTE | 2024-05-01 09:35 | Pharmacy Report ---
Pharmacy PK ABX Note - Date of Service May 01, 2024 - Assessment and Plan Assessment 05/01 * Vanco level drawn this morning was 8.8. This extrapolates to an AUC24 of less than the goal range of 400-600, so the vancomycin will be increased to 1250mg iv q 12 hours starting with the dose this evening. * Blood and right forearm culture from 04/29 are negative to date (preliminary). * Current antibiotics (vancomycin and ceftriaxone) to be continued for now and if patient does not completely respond, I&D will be considered per surgery. * RUE erythema, pain, and swelling remains about the same per patient but has been afebrile and without leukocytosis since admit. 04/29 * 73 year old F receiving vancomycin and ceftriaxone for treatment of cellulitis. Failed outpatient therapy (cephalexin + doxycycline). Cultures pending. Renal function stable. Day #1 of antimicrobial therapy. Plan Vancomycin * Loading dose: 1250 mg IV x 1 * Maintenance dose: 750 mg IV every 12 hours * Regimen is predicted to achieve target AUC/CLAUDY of 400-600 mg/L.hr * Will obtain a level after ~ 48h of therapy, or sooner if clinically indicated Pharmacy will continue to follow and will adjust dose/frequency as necessary. Thank you. Pharmacy has transitioned to AUC monitoring for vancomycin. AUC/CLAUDY is the preferred PK/PD target and is associated with decreased risk of nephrotoxicity compared to traditional trough targets.
--- NOTE | 2024-05-01 09:44 | Hospitalist Progress Note ---
Date of Service May 01, 2024 Assessment & Plan (1) Cellulitis: Plan: 73-year-old who had a recent skin tear and abrasion of right upper extremity complicated by a cellulitis that did not improve with oral Keflex and doxycycline. Admitted for IV antibiotics and further evaluation culture of some drainage from right forearm was taken in the EDreviewed Gram stain which showed white cells only, culture pending NGTD. blood cultures no growth to date - reviewed RUE cellulitis has worsened despite adequate trial of vancomycin and ceftriaxone and has been elevating it consistently last 24h. may have organism resistant to these antibiotics (pseudomonas or other resistant gram negative, VRE which seems unlikely) -changed ABX to cefepime and daptomycin General surgery consulting - hematoma area does not seem too suspicious for abscess, consider further imaging, await recs from today will reexamine later today AM CBC and BMP she continues to warrant hospitalization for intravenous antibiotics and serial examination (2) Traumatic hematoma of right forearm: Plan: Needle aspirated as some pus present in the ER to send off for culture. Picture above taken prior to aspiration. see above wound care for skin tear and hematoma (3) Failure of outpatient treatment: Plan HTN - Continue metoprolol, switch benzapril to enalapril per hospital pharmacy, continue amlodipine GERD - continue famotidine Anxiety - continue Lexapro VTE Prophylaxis - start enoxaparin I updated her at bedside 04/30, 05/01 Admission and Anticipated Discharge Date Admission Date: April 29, 2024 Subjective RUE redness and swelling is worse compared to 24h ago. Skin in this area feels itchy and sore. No generalized rash or itching Has been elevating it Physical Exam 2 Physical Exam: PHYSICAL EXAMINATION Last 24h vital signs reviewed, see documentation in flowsheet General: comfortable appearing, no distress HEENT: Normocephalic, atraumatic, pupils round and equal, sclerae anicteric, no conjunctival injection, moist mucus membranes Lungs: Normal respiratory effort. Heart: deferred Abdomen: nondistended Extremities: RUE with severe cellulitis from wrist up to near elbow - has not extended past ED markings but is now confluent to the edge of these. Erythema and induration clearly worsened compared to yesterday. 4.5 cm hematoma R forearm without tenderness or warmth, area around this is not more firm or indurated, skin tear R forearm covered with vaseline gauze Neuro: Alert and oriented x 4, face symmetric, moves 4 extremities well Psych: Normal affect and behavior Results & Data Results & Data Vital Signs (Past 12 Hours) Vital Signs Temp Pulse Resp BP Pulse Ox O2 Del Method 05/01/24 07:04 98.2 F 55 L 16 155/84 H 95 Room Air Laboratory Results 04/29/24 09:40 05/01/24 05:28 PG Care Time/CCT Total # of Minutes Spent Total Time Spent with Patient: Total time spent is greater than 50% in coordination of care (as documented) at patient's floor/unit and/or counseling patient: Coding Level of Care Code 30420 SUB INP/OBS CARE 3/50MIN Diagnoses Cellulitis of right upper extremity L03.113 Laterality: right Site of cellulitis: extremity Site of cellulitis of extremity: upper extremity Traumatic hematoma of right forearm S50.11XA Failure of outpatient treatment Z78.9 (1) Cellulitis Laterality: right Site of cellulitis: extremity Site of cellulitis of extremity: upper extremity Qualified Code(s): L03.113 - Cellulitis of right upper limb
[2024-05-01] MEDS: ENOXAPARIN INJ 40 MG/0.4 ML SYR SQ SCH (10:44)
[2024-05-01] MEDS: DAPTOmycin 175 MG in SYRINGE 0 ML IV SCH (10:45)
[2024-05-01] MEDS: CEFEPIME 2000MG 2,000 MG/20 ML SYR IV SCH (10:45)
--- NOTE | 2024-05-01 15:57 | Surgery Progress Note ---
Date of Service May 01, 2024 Assessment & Plan (1) Traumatic hematoma of right forearm: Plan: started on new antibiotics yesterday pt thinks erythema and is better than yesterday continue iv antibiotics ordered a CT scan without contrast to eval for possible abscess pt seen and examined with Dr. Hannah Admission and Anticipated Discharge Date Admission Date: April 29, 2024 Subjective was started on new IV antibiotics reports less erythema than yesterday Review of Systems Integumentary: + erythema (Right arm ) Physical Exam Skin: + ecchymosis and + erythema Psychiatric: A+Ox3, euthymic affect Results & Data Vital Signs (Past 12 Hours) Vital Signs Temp Pulse Resp BP Pulse Ox O2 Del Method 05/01/24 14:31 98.1 F 57 L 16 145/84 H 95 Room Air 05/01/24 07:04 98.2 F 55 L 16 155/84 H 95 Room Air PG Care Time/CCT Total # of Minutes Spent Total Time Spent with Patient: Total time spent is greater than 50% in coordination of care (as documented) at patient's floor/unit and/or counseling patient: Coding Level of Care Code 57700 SUB INP/OBS CARE 25MIN Diagnoses Traumatic hematoma of right forearm S50.11XA
--- NOTE | 2024-05-01 16:57 | CT Scan Report ---
INDICATION: Fall. Evaluate for abscess. COMPARISON: Radiograph from 04/29/2024. TECHNIQUE: Axial CT images of the right forearm were obtained without IV contrast administration. Coronal and sagittal reformations were reviewed. FINDINGS: No acute fracture or dislocation. No lytic or blastic bony lesions seen. No evidence of cortical erosion. Mild degenerative changes in the wrist/carpal bones with joint space loss. Soft tissue swelling. No soft tissue gas or fluid collection seen on this noncontrast study. Specifically, no correlation/fluid collection with left nodularity seen on prior radiograph. IMPRESSION: 1. No acute osseous abnormality evident. 2. Soft tissue swelling. No soft tissue gas or fluid collection seen on this noncontrast study. Electronically signed by Matias Dixon 05-01-2024 4:57 PM
--- NOTE | 2024-05-01 17:27 | Communication Note ---
Date of Service: May 01, 2024 Reexamined this evening - R arm erythema might be slightly improved especially distally near the wrist. Definitely not worsened compared to this AM Reviewed CT of arm ordered by surgery team - no abscess seen Ondina requests oral antiemetic on discharge to help her tolerate antibiotics.
[2024-05-01] MEDS ORDERED: VANCOMYCIN HCL 1,250 MG in SODIUM CHLORIDE 0.9% 250 ML IV SCH (18:00)
[2024-05-02 07:58] LABS: Hematocrit (blood only) 40.7 % (37.0-47.0); Hemoglobin 13.9 g/dl (12.0-16.0); Mean Corpuscular Hemoglobin 29.8 pg (25.0-34.0); Mean Corpuscular Hgb Conc 34.2 g/dL (32.0-36.0); Mean Corpuscular Volume 87.3 fL (80.0-100.0); Mean Platelet Volume 8.9 fL (9.4-12.4); Platelet Count 411 K/uL (130-400); RDW Coefficient of Variation 12.6 % (11.5-14.5); RDW Standard Deviation 40.2 fL (36.4-46.3); Red Blood Count 4.66 M/uL (4.20-5.40); White Blood Count 5.14 K/ul (4.8-10.8)
[2024-05-02 08:09] LABS: BUN Creatinine Ratio 24.4 (10-20); Calcium 8.9 mg/dl (8.6-10.3); Creatinine Clr Calc Pharmacy 85.2 ml/min; Potassium 4.1 mmol/L (3.5-5.1)
--- NOTE | 2024-05-02 08:47 | Surgery Progress Note ---
Date of Service May 02, 2024 Assessment & Plan (1) Traumatic hematoma of right forearm: Plan: VSS , wbc wnl pt thinks arm same as yesterday CT scan without abscess /drainable fluid collections /gas continue iv antibiotics, no surgical intervention indicated as above. no fluid collection present to drain continue current care. please call if any questions or concerns Admission and Anticipated Discharge Date Admission Date: April 29, 2024 Subjective Pt thinks arm is same as yesterday Review of Systems Integumentary: + erythema (Right arm ) Physical Exam Skin: + ecchymosis and + erythema Psychiatric: A+Ox3, euthymic affect Results & Data Vital Signs (Past 12 Hours) Vital Signs Temp Pulse Resp BP Pulse Ox O2 Del Method 05/02/24 07:18 97.7 F 50 L 16 144/83 H 96 Room Air 05/01/24 20:45 98.1 F 58 L 16 130/85 94 Room Air Diagnostic Findings [place], [place] [phone] CT Scan Report Patient: LISSETTE PEOPLES Admit Date: 04/29/24 MR#: [id number] Address1: [address] [place] [address] Acct ID:[id number] Address2: Date: 1950 [facility] Zip: [place] [address] Age: 73 Location: 3E Sex: F Room/Bed: [facility] Att Phy: Emelia Tran MD Diagnosis: CELLULITIS Desire Phy: Delores Fraser M.D. Service Date: 05/01/24 Fam Phy: Interpreting Phy: Matias Dixon DOAdmit Phy: Carl Choi MD Ordering Phy: Pradeep Nelson cc: ~ INDICATION: Fall. Evaluate for abscess. COMPARISON: Radiograph from 04/29/2024. TECHNIQUE: Axial CT images of the right forearm were obtained without IV contrast administration. Coronal and sagittal reformations were reviewed. FINDINGS: No acute fracture or dislocation. No lytic or blastic bony lesions seen. No evidence of cortical erosion. Mild degenerative changes in the wrist/carpal bones with joint space loss. Soft tissue swelling. No soft tissue gas or fluid collection seen on this noncontrast study. Specifically, no correlation/fluid collection with left nodularity seen on prior radiograph. IMPRESSION: 1. No acute osseous abnormality evident. 2. Soft tissue swelling. No soft tissue gas or fluid collection seen on this noncontrast study. Electronically signed by Matias Dixon 05-01-2024 4:57 PM Dictated: 05/01/24 1644 Transcribed: PG Care Time/CCT Total # of Minutes Spent Total Time Spent with Patient: Total time spent is greater than 50% in coordination of care (as documented) at patient's floor/unit and/or counseling patient: Coding Level of Care Code 63828 SUB INP/OBS CARE /25MIN Diagnoses Traumatic hematoma of right forearm S50.11XA
--- NOTE | 2024-05-02 10:20 | Hospitalist Progress Note ---
Date of Service May 02, 2024 Assessment & Plan (1) Cellulitis: Plan: skin tear and abrasion of right upper extremity following a fall in her driveway about 2+ weeks ago. complicated by extensive right arm cellulitis that did not improve with oral Keflex and doxycycline. Admitted for IV antibiotics and failure of outpatient Rx. Wound culture from the right arm -- negative. Blood cultures negative. Previously on IV vancomycin and ceftriaxone. Due to lack of improvement changes to IV cefepime/daptomycin on 05/01/24. General surgery assistance appreciated. RUE CT obtained - no abscess, nec fasc or other deeper infection findings. Nothing surgical at this time. Cont IV cefepime/dapto. Cont elevation. She c/o pruritis - add barry 60mg BID. Motrin prn. (2) Traumatic hematoma of right forearm: Plan: Wound care consulted for dressing recommendations. See #1 above. (3) Failure of outpatient treatment: Plan: as above Plan HTN - Continue metoprolol, continue amlodipine, continue JODI GERD - continue famotidine Anxiety - continue Lexapro VTE Prophylaxis - enoxaparin 40mg daily updated at bedside today Admission and Anticipated Discharge Date Admission Date: April 29, 2024 Subjective patient reports ongoing swelling and redness of right arm no worse than yesterday mild discomfort but no overt severe pain can move the right elbow w/o difficulty eating well no chest pain, dyspnea or abd pain was present at bedside during the visit Review of Systems 2 Review of Systems: gen - no fevers or chills GI - no diarrhea or N/V Physical Exam 2 Physical Exam: gen - NAD, pleasant, looks well/nontoxic neck - no JVD mouth - MMM heart - RRR, s1 s2, no murmur lungs - CTA b/l abd - soft NT ND BS+ skin - right arm extensive pink erythema with warmth extending from just superior to the right elbow down to the right wrist region; there is no abscess; there is thick dry skin near the antecubital region of the right elbow (ventral surface) as well as thick, scaly dry skin near the right wrist; there is a skin tear in a linear configuration distal to the right elbow with scant drainage; there is 1 additional area that is open and draining scant fluid in the same vicinity; there is an old area - about 1/2 dollar size - of prior traumatic ecchymoses of note - there are prior purple demarkation dots on the proximal right arm; the erythema is retreating from this demarkation line musculo - full ROM of right elbow and right wrist without pain vascular - right radial pulse 2+; foot pulses 2+ b/l Results & Data Results & Data Vital Signs (Past 12 Hours) Vital Signs Temp Pulse Resp BP Pulse Ox O2 Del Method 05/02/24 07:18 36.5 C 50 L 16 144/83 H 96 Room Air Laboratory Results Laboratory Results - last 24 hr 05/02/24 07:08 WBC 5.14 RBC 4.66 Hgb 13.9 Hct 40.7 MCV 87.3 MCH 29.8 MCHC 34.2 RDW Std Deviation 40.2 RDW Coeff of Carol 12.6 Plt Count 411 H MPV 8.9 L Sodium 133 L Potassium 4.1 Chloride 98 Carbon Dioxide 27 Anion Gap 8 BUN 11 Creatinine 0.45 L Est Cr Clr Drug Dosing 85.2 eGFR 100.26 BUN/Creatinine Ratio 24.4 H Glucose 101 H Calcium 8.9 Diagnostic Findings Photos obtained with verbal permission from patient -- PG Care Time/CCT Total # of Minutes Spent Total Time Spent with Patient: Total time spent is greater than 50% in coordination of care (as documented) at patient's floor/unit and/or counseling patient: Coding Level of Care Code 14712 SUB INP/OBS CARE 2MIN Diagnoses Cellulitis of right upper extremity L03.113 Laterality: right Site of cellulitis: extremity Site of cellulitis of extremity: upper extremity Traumatic hematoma of right forearm S50.11XA Failure of outpatient treatment Z78.9 (1) Cellulitis Laterality: right Site of cellulitis: extremity Site of cellulitis of extremity: upper extremity Qualified Code(s): L03.113 - Cellulitis of right upper limb
[2024-05-02] MEDS: FEXOFENADINE 60 MG TAB PO ONE (11:07)
[2024-05-02] MEDS: FEXOFENADINE 60 MG TAB PO SCH (21:20)
[2024-05-03 07:20] LABS: BUN Creatinine Ratio 29.5 (10-20); Calcium 8.7 mg/dl (8.6-10.3); Creatinine Clr Calc Pharmacy 87.1 ml/min
[2024-05-03] MEDS: IBUPROFEN 200 MG TAB PO SCH (14:15)
--- NOTE | 2024-05-03 19:53 | Hospitalist Progress Note ---
Date of Service May 03, 2024 Assessment & Plan (1) Cellulitis: Plan: skin tear and abrasion of right upper extremity following a fall in her driveway about 2+ weeks ago. complicated by extensive right arm cellulitis that did not improve with oral Keflex and doxycycline. Admitted for IV antibiotics and failure of outpatient Rx. Wound culture from the right arm -- negative. Blood cultures negative. Previously on IV vancomycin and ceftriaxone. Due to lack of improvement changes to IV cefepime/daptomycin on 05/01/24. Right arm IS IMPROVED today - pink erythema is less intense today. WBC count yesterday was normal. She feels well, eating well, no fevers. General surgery assistance appreciated. RUE CT obtained - no abscess, nec fasc or other deeper infection findings. Nothing surgical at this time. Cont IV cefepime/dapto. Cont elevation. Cont barry 60mg BID for itching. Schedule a few doses of Motrin today to help with pain/swelling. (2) Traumatic hematoma of right forearm: Plan: Wound care consulted for dressing recommendations. Appreciate their recs. Cont Xeroform dressings daily. See #1 above. (3) Failure of outpatient treatment: Plan: as above (4) Hyponatremia: Plan: improved - Na level normal today recheck BMP 48 hours for stability Plan HTN - Continue metoprolol, continue amlodipine, continue JODI GERD - continue famotidine Anxiety - continue Lexapro VTE Prophylaxis - enoxaparin 40mg daily updated at bedside once again today Admission and Anticipated Discharge Date Admission Date: April 29, 2024 Subjective no events overnight no elbow pain or wrist pain mild discomfort only in the right arm itching improved w/ barry eating well no diarrhea - if anything she is constipated Review of Systems Review of Systems: gen - no fevers or chills cv - no chest pain pulm - no dyspnea or SANTAMARIA GI - no N/V or pain Physical Exam Physical Exam: gen - NAD, pleasant, looks well neck - no JVD mouth - MMM heart - RRR, s1 s2, no murmur lungs - CTA b/l abd - soft NT ND BS+ skin - right arm pink erythema with warmth extending from just superior to the right elbow down to the right wrist region - IMPROVING today; there is no abscess; previous thick dry skin near the antecubital region of the right elbow (ventral surface) as well as thick, scaly dry skin near the right wrist - improved; there is a skin tear in a linear configuration distal to the right elbow with no drainage; there is 1 additional area that is open and draining scant fluid in the same vicinity; there is an old area - about 1/2 dollar size - of prior traumatic ecchymoses - this is slightly open and draining serous fluid of note - there are prior purple demarkation dots on the proximal right arm; the erythema continues to retreat from this demarkation line musculo - full ROM of right elbow and right wrist without pain Results & Data Results & Data Vital Signs (Past 12 Hours) Vital Signs Temp Pulse Resp BP Pulse Ox O2 Del Method 05/03/24 19:44 36.4 C L 57 L 12 144/78 H 97 Room Air 05/03/24 15:28 36.6 C 56 L 16 135/88 96 Room Air Laboratory Results Laboratory Results - last 48 hr 05/02/24 05/03/24 07:08 06:48 WBC 5.14 RBC 4.66 Hgb 13.9 Hct 40.7 MCV 87.3 MCH 29.8 MCHC 34.2 RDW Std Deviation 40.2 RDW Coeff of Carol 12.6 Plt Count 411 H MPV 8.9 L Sodium 133 L 136 Potassium 4.1 4.0 Chloride 98 102 Carbon Dioxide 27 29 Anion Gap 8 5 BUN 11 13 Creatinine 0.45 L 0.44 L Est Cr Clr Drug Dosing 85.2 87.1 eGFR 100.26 100.81 BUN/Creatinine Ratio 24.4 H 29.5 H Glucose 101 H 101 H Calcium 8.9 8.7 PG Care Time/CCT Total # of Minutes Spent Total Time Spent with Patient: Total time spent is greater than 50% in coordination of care (as documented) at patient's floor/unit and/or counseling patient: Coding Level of Care Code 05428 SUB INP/OBS CARE 06/24MIN Diagnoses Cellulitis of right upper extremity L03.113 Laterality: right Site of cellulitis: extremity Site of cellulitis of extremity: upper extremity Traumatic hematoma of right forearm S50.11XA Failure of outpatient treatment Z78.9 Hyponatremia E87.1 (1) Cellulitis Laterality: right Site of cellulitis: extremity Site of cellulitis of extremity: upper extremity Qualified Code(s): L03.113 - Cellulitis of right upper limb
[2024-05-04 09:56] LABS: Basophils # (auto) 0.05 K/uL (0.00-0.20); Basophils % (auto) 1.1 %; Eosinophils # (auto) 0.33 K/uL (0.00-0.50); Eosinophils % (auto) 7.3 %; Hematocrit (blood only) 39.6 % (37.0-47.0); Hemoglobin 13.5 g/dl (12.0-16.0); Immature Granulocytes # (auto) 0.01 K/uL (0.01-0.20); Immature Granulocytes % (auto) 0.2 %; Lymphocytes # (auto) 1.24 K/uL (1.20-3.40); Lymphocytes % (auto) 27.4 %; Mean Corpuscular Hemoglobin 29.5 pg (25.0-34.0); Mean Corpuscular Hgb Conc 34.1 g/dL (32.0-36.0); Mean Corpuscular Volume 86.7 fL (80.0-100.0); Mean Platelet Volume 8.6 fL (9.4-12.4); Monocytes # (auto) 0.53 K/uL (0.11-0.59); Monocytes % (auto) 11.7 %; Neutrophils # (auto) 2.36 K/uL (1.40-6.50); Neutrophils % (auto) 52.3 %; Platelet Count 388 K/uL (130-400); RDW Coefficient of Variation 12.9 % (11.5-14.5); RDW Standard Deviation 40.1 fL (36.4-46.3); Red Blood Count 4.57 M/uL (4.20-5.40); White Blood Count 4.52 K/ul (4.8-10.8)
[2024-05-04 10:24] LABS: Potassium 3.8 mmol/L (3.5-5.1)
[2024-05-04 10:30] LABS: BUN Creatinine Ratio 22.6 (10-20); C Reactive Protein 0.86 mg/dl (0-0.5); Creatinine Clr Calc Pharmacy 61.8 ml/min
[2024-05-04] MEDS ORDERED: IBUPROFEN 200 MG TAB PO PRN (12:15)
[2024-05-04] MEDS: POLYETHYLENE (MIRALAX) 17 GM PACK PO SCH (12:44)
--- NOTE | 2024-05-04 19:28 | Hospitalist Progress Note ---
Date of Service May 04, 2024 Assessment & Plan (1) Cellulitis: Plan: skin tear, abrasions, and small hematoma/ecchymoses of right upper extremity following a fall in her driveway about 2+ weeks ago. complicated by extensive right arm cellulitis that did not improve with oral Keflex and doxycycline as outpatient. Admitted for IV antibiotics and failure of outpatient Rx. Wound culture from the right arm -- negative. Blood cultures negative. Previously on IV vancomycin and ceftriaxone. Due to lack of improvement changed to IV cefepime/daptomycin on the AM of 05/01/24. Right arm HAS IMPROVED with the cefepime/daptomycin. This would suggest that perhaps a gram negative pathogen (ie pseudomonas) may have contributed to her cellulitis. WBC count remains wnl. CRP scantly above normal. No fevers, eating well, etc. General surgery assistance appreciated. RUE CT obtained - no abscess, nec fasc or other deeper infection findings. Nothing surgical at this time. Cont IV cefepime/dapto. Cont elevation of arm. Cont barry 60mg BID for itching. Will ask ID for their opinion re: PO abx -- cipro or levaquin for pseudomonas and gram neg coverage? bactrim for MRSA? (2) Traumatic hematoma of right forearm: Plan: Wound care consulted for dressing recommendations. Appreciate their recs. Cont Xeroform dressings daily. See #1 above. [facility]. (3) Failure of outpatient treatment: Plan: as above (4) Hyponatremia: Plan: stable at 134 Plan HTN - Continue metoprolol (change parameters to give such if HR >55), continue amlodipine, continue JODI GERD - continue famotidine Anxiety - continue Lexapro VTE Prophylaxis - enoxaparin 40mg daily updated at bedside once again today very pleased with her progress hopefully home tomorrow Admission and Anticipated Discharge Date Admission Date: April 29, 2024 Subjective main complaint is insomnia since admission she has slept poorly nearly every night only had 2 hours of sleep last night for years she took temazepam but this has been weaned to 7.5mg by her PCP; not taking it regularly at home no BM to date eating well no pain or significant tenderness right arm at bedside Review of Systems Review of Systems: gen - no fevers cv - no orthopnea pulm - no dyspnea or SANTAMARIA GI - no diarrhea psych - insomnia musculo - walking the hallways Physical Exam Physical Exam: gen - NAD, pleasant, looks tired neck - no JVD mouth - MMM heart - RRR, s1 s2, no murmur lungs - CTA b/l abd - soft NT ND BS+ skin - right arm pink erythema from just superior to the right elbow down to the right wrist region - again improved today; pink skin continues to fade; there is no abscess; previous thick dry skin near the antecubital region of the right elbow (ventral surface) as well as thick, scaly dry skin near the right wrist - resolved; there is a skin tear in a linear configuration distal to the right elbow with no drainage; 1/2 dollar size traumatic ecchymoses is open and having some draining serous fluid there are prior purple demarkation dots on the proximal upper right arm; the erythema continues to retreat from this demarkation line musculo - continued full ROM of right elbow and right wrist without pain Results & Data Results & Data Vital Signs (Past 12 Hours) Vital Signs Temp Pulse Resp BP Pulse Ox O2 Del Method 05/04/24 14:50 36.5 C 61 18 152/85 H 97 Room Air Laboratory Results Laboratory Results - last 24 hr 05/04/24 09:43 WBC 4.52 L RBC 4.57 Hgb 13.5 Hct 39.6 MCV 86.7 MCH 29.5 MCHC 34.1 RDW Std Deviation 40.1 RDW Coeff of Carol 12.9 Plt Count 388 MPV 8.6 L Immature Gran % (Auto) 0.2 Neut % (Auto) 52.3 Lymph % (Auto) 27.4 [place] % (Auto) 11.7 Eos % (Auto) 7.3 Baso % (Auto) 1.1 Neut # (Auto) 2.36 Lymph # (Auto) 1.24 [place] # (Auto) 0.53 Eos # (Auto) 0.33 Baso # (Auto) 0.05 Immature Gran # (Auto) 0.01 Sodium 134 L Potassium 3.8 Chloride 102 Carbon Dioxide 26 Anion Gap 6 BUN 14 Creatinine 0.62 Est Cr Clr Drug Dosing 61.8 eGFR 92.81 BUN/Creatinine Ratio 22.6 H Glucose 119 H Calcium 9.0 C-Reactive Protein 0.86 H PG Care Time/CCT Total # of Minutes Spent Total Time Spent with Patient: Total time spent is greater than 50% in coordination of care (as documented) at patient's floor/unit and/or counseling patient: Coding Level of Care Code 60038 SUB INP/OBS CARE MIN Diagnoses Cellulitis of right upper extremity L03.113 Laterality: right Site of cellulitis: extremity Site of cellulitis of extremity: upper extremity Traumatic hematoma of right forearm S50.11XA Failure of outpatient treatment Z78.9 Hyponatremia E87.1 (1) Cellulitis Laterality: right Site of cellulitis: extremity Site of cellulitis of extremity: upper extremity Qualified Code(s): L03.113 - Cellulitis of right upper limb
[2024-05-04] MEDS ORDERED: TEMAZEPAM 7.5 MG CAPSULE PO PRN (20:17)
[2024-05-04] MEDS: MELATONIN 3 MG TAB PO SCH (21:15)
[2024-05-04] MEDS: TEMAZEPAM 7.5 MG CAPSULE PO SCH (21:31)
[2024-05-05 07:20] VITALS: RESP 18
--- NOTE | 2024-05-05 09:26 | Infectious Disease Consult ---
Date of Consultation May 05, 2024 Assessment & Plan (1) Failure of outpatient treatment: (2) Traumatic hematoma of right forearm: (3) Cellulitis: (4) Cellulitis of right elbow: Plan This is a 73-year-old female with a past medical history of osteoarthritis, hypertension who presents for worsening right arm erythema and swelling. On approximately 04/17 she fell and scraped her arm and tore some skin. Post fall she subsequently developed right arm erythema, swelling and pain. She was evaluated in the ED on 04/24 and diagnosed with cellulitis. She was started on doxycycline and Keflex. She took antibiotics as prescribed but despite this her erythema and swelling progressed and she developed a bloody blister with some purulent discharge. Denies any water or pet exposures to the wound. In the ED, she is afebrile, pulse 75, RR 20, BP 133/76, O2 sats 95% on room air. Labs: WBC 7.30, platelets 509---> 388, BUN 11, creatinine 0.64, CRP 0.86. Elbow x-ray showed soft tissue swelling. A nodular opacity associated with the skin lateral proximal forearm. Forearm x-ray showed 2 cm nodular cutaneous opacity mid forearm. Forearm x-ray showed no acute osseous abnormality. Soft tissue swelling. No soft tissue gas or fluid collection seen in noncontrast study. Wound culture sterile. Blood cultures no growth. She was initially started on vancomycin and ceftriaxone with minimal improvement. She was evaluated by surgery and no surgical intervention was deemed necessary as patient did not have any fluctuance/induration or abscess. Antibiotics were switched to daptomycin and cefepime. On therapy patient had less swelling, erythema and tenderness. ID consulted for antibiotic recommendations for right upper extremity cellulitis. She feels well. She feels that the arm infection has markedly improved since admission. She has some soreness but much less than on admission. She feels that the swelling has nearly resolved. She denies any drainage from the wound. She denies any systemic symptoms of fever, chills, sweats, nausea, vomiting. There are no nodular lesions or new streaking up her arm. Microbiology: Blood cultures 04/29 no growth Wound culture 04/29 no growth Antibiotics: Vancomycin 04/29 - 05/01 daptomycin 3ongoing Ceftriaxone 04/29 - 04/30 Cefepime 05/01ongoing Discussion: She appeared to have a severe cellulitis per pictures on admission which was slow to improve. There is no evidence of deep space infection on imaging or per current exam. She seems to have improved once started on cefepime and daptomycin. Will continue gram-negative coverage especially for possible Pseudomonas.. No MRSA screen results seen. Recommendations: Continue cefepime 2 g IV every 8 hours and daptomycin 4 mg/kg IV every 24 hours. If she continues to improve, can consider transitioning to Levaquin 750 mg p.o. every 24 hours if QTc less than 500 and Bactrim double strength 2 tabs p.o. twice daily to complete 10 days total therapy from starting cefepime EOT 05/11/2024 Thank you for this consult. ID will sign off. Call with questions. Gregory Cullen MD, MPH Infectious Disease [facility] Call [phone] with questions Consultation Information Consultation was provided via telemedicine using two-way real-time interactive telecommunication between the patient and the telemedicine provider. For the duration of the visit, the provider was performing the assessment from a different facility than the patient. This includesuse of bluetooth stethoscope forauscultationperformed by the telepresenter that the telemedicine provider can hear if described in the physical exam. Press Secretary contact information: Please call [facility] Center [phone]. (Phone Number For Physician Use Only) After establishing a telemedicine visit, patient was: Patient was verified with two unique identifiers Time Spent with Patient: Initial => 75 min History of Present Illness Reason for Consultation: R arm cellulitis Requesting Physician: Carl Pederson MD Attending Physician: Carl Pederson MD History of Present Illness ll she subsequently developed right arm erythema, swelling and pain. She was evaluated in the ED on 04/24 and diagnosed with cellulitis. She was started on doxycycline and Keflex. She took antibiotics as prescribed but despite this her erythema and swelling progressed and she developed a bloody blister with some purulent discharge. Denies any water or pet exposures to the wound. In the ED, she is afebrile, pulse 75, RR 20, BP 133/76, O2 sats 95% on room air. Labs: WBC 7.30, platelets 509---> 388, BUN 11, creatinine 0.64, CRP 0.86. Elbow x-ray showed soft tissue swelling. A nodular opacity associated with the skin lateral proximal forearm. Forearm x-ray showed 2 cm nodular cutaneous opacity mid forearm. Forearm x-ray showed no acute osseous abnormality. Soft tissue swelling. No soft tissue gas or fluid collection seen in noncontrast study. Wound culture sterile. Blood cultures no growth. She was initially started on vancomycin and ceftriaxone with minimal improvement. She was evaluated by surgery and no surgical intervention was deemed necessary as patient did not have any fluctuance/induration or abscess. Antibiotics were switched to daptomycin and cefepime. On therapy patient had less swelling, erythema and tenderness. ID consulted for antibiotic recommendations for right upper extremity cellulitis. She feels well. She feels that the arm infection has markedly improved since admission. She has some soreness but much less than on admission. She feels that the swelling has nearly resolved. She denies any drainage from the wound. She denies any systemic symptoms of fever, chills, sweats, nausea, vomiting. There are no nodular lesions or new streaking up her arm Allergies Allergy/AdvReac Type Severity Reaction Status Date / Time dimenhydrinate Allergy Swelling Verified 04/29/24 11:45 [From Dramamine] of Lip/Tongue/Throat gabapentin AdvReac Diarrhea Verified 04/29/24 11:45 shellfish derived AdvReac Verified 04/29/24 11:45 Home Medications Medication Instructions Recorded Confirmed Type cholecalciferol (vitamin D3) 25 25 mcg PO QPM 07/22/22 04/29/24 History mcg (1,000 unit) capsule zoledronic acid 5 mg/100 mL in 5 ea IV YEARLY #100 mL 03/05/23 04/29/24 Rx mannitol 5 %-water intravenous piggybck (Reclast) metoprolol succinate 25 mg 25 mg PO DAILY #90 tabs 08/12/23 04/29/24 Rx tablet,extended release 24 hr magnesium glycinate 400 mg (4 x 100 mg magnesium) PO 10/06/23 04/29/24 Rx DAILY #30 caps riboflavin (vitamin B2) 400 mg 400 mg PO DAILY #30 tabs 10/06/23 04/29/24 Rx tablet temazepam 15 mg capsule (Restoril) 7.5 mg PO HS PRN Sleep 10/19/23 04/29/24 History ketorolac 10 mg tablet 10 mg PO Q8H PRN pain 30 days #20 02/29/24 04/29/24 Rx tabs cephalexin 500 mg capsule 500 mg PO QID 7 days #28 caps 04/24/24 04/29/24 Rx doxycycline hyclate 100 mg capsule 100 mg PO BID 7 days #14 caps 04/24/24 04/29/24 Rx amlodipine 10 mg tablet 0 mg PO DAILY 04/29/24 04/29/24 History benazepril 40 mg tablet 40 mg PO DAILY 04/29/24 04/29/24 History erenumab-aooe 70 mg/mL 70 mg subcut UD 04/29/24 04/29/24 History subcutaneous auto-injector (Aimovig Autoinjector) escitalopram oxalate 10 mg tablet 10 mg PO DAILY 04/29/24 04/29/24 History famotidine 20 mg tablet 20 mg PO DAILY 04/29/24 04/29/24 History ondansetron HCl 4 mg tablet 4 mg PO TID PRN Nausea And Vomiting 04/29/24 04/29/24 History ubrogepant 100 mg tablet (Ubrelvy) 100 mg PO UD PRN migraine headache 04/29/24 04/29/24 History Patient History Medical History Hyponatremia DDD (degenerative disc disease) Hearing deficit Osteoarthritis Anxiety HTN (hypertension) Surgical History Hx of cataract extraction History of wisdom tooth extraction History of appendectomy History of colonoscopy Family History Other No family history of adverse response to anesthesia Social History Smoking Status: Former smoker Age Started Using Tobacco: 16; Age Quit Using Tobacco: 71; packs per day: 1; Second Hand Exposure: No; Do You Dip or Chew Tobacco: No; Hx Alcohol Use: Yes Alcohol type: wine Alcohol Intake Frequency: 4 or More x per/Week Hx Substance Use: No Preferred Language: Turkish Communication Ability: Effective Visual Impairment: No Limitations Hearing Ability: Use of Hearing Aid Glue Bone Crusher Required: No Beliefs That Will Affect Care: None marital status: Current Living Situation: Spouse current occupational status: retired How many Children do You have: 2 Feels Safe at Home: Yes Diet: regular caffeine: Yes (coffee occasionally) Dental Care, Regularly: Yes Physical Activity Frequency: Does not Exercise Seatbelt Use: always Do you think of yourself as: straight/heterosexual Gender Identity: Female Assistive Devices: None Review of System 10 Point ROS obtained. Pertinent positives as per HPI. Physical Exam Physical Exam: Gen- NAD HEENT-AT NC, anicteric sclera Neck- supple Lungs0 Unlabored breathing, on RA Abdomen- soft Ext- RUE dressed with guaze dressing and sleeve in place: able to move fingers, No hand edema ( resolved). Has light pink erythema seen past dressing. Has not progrossed. I also viewed photos of arm on admission and on 05/04. Marked decreased in edema and erythema. Not warm on exposed areas of erythema. Dressing dry. No streakin up arm. Neuro-AAO times 3 Psych- cooperative, appropriate mood. Results & Data Vital Signs (Past 12 Hours) Vital Signs Temp Pulse Resp BP Pulse Ox O2 Del Method 05/05/24 07:20 36.7 C 55 L 18 125/76 93 Room Air Laboratory Results Laboratory Results - last 48 hr 05/04/24 09:43 WBC 4.52 L RBC 4.57 Hgb 13.5 Hct 39.6 MCV 86.7 MCH 29.5 MCHC 34.1 RDW Std Deviation 40.1 RDW Coeff of Carol 12.9 Plt Count 388 MPV 8.6 L Immature Gran % (Auto) 0.2 Neut % (Auto) 52.3 Lymph % (Auto) 27.4 Wright % (Auto) 11.7 Eos % (Auto) 7.3 Baso % (Auto) 1.1 Neut # (Auto) 2.36 Lymph # (Auto) 1.24 Wright # (Auto) 0.53 Eos # (Auto) 0.33 Baso # (Auto) 0.05 Immature Gran # (Auto) 0.01 Sodium 134 L Potassium 3.8 Chloride 102 Carbon Dioxide 26 Anion Gap 6 BUN 14 Creatinine 0.62 Est Cr Clr Drug Dosing 61.8 eGFR 92.81 BUN/Creatinine Ratio 22.6 H Glucose 119 H Calcium 9.0 C-Reactive Protein 0.86 H Diagnostic Findings Microbiology 04/29/24 11:51 Blood Aerobic Blood Culture - Final No growth in Aerobic bottle after 5 days. 04/29/24 11:51 Blood Anaerobic Blood Culture - Final 04/29/24 11:17 Blood Aerobic Blood Culture - Final No growth in Aerobic bottle after 5 days. 04/29/24 11:17 Blood Anaerobic Blood Culture - Final No growth in Anaerobic bottle after 5 days. 04/29/24 11:45 Arm Gram Stain - Final 04/29/24 11:45 Arm Aerobic and Anaerobic Culture - Final No growth Medications Administered Home Medications Medication Instructions Recorded Confirmed Last Taken cholecalciferol (vitamin D3) 25 25 mcg PO QPM 07/22/22 04/29/24 03/04/23 mcg (1,000 unit) capsule zoledronic acid 5 mg/100 mL in 5 ea IV YEARLY #100 mL 03/05/23 04/29/24 Unknown mannitol 5 %-water intravenous piggybck (Reclast) metoprolol succinate 25 mg 25 mg PO DAILY #90 tabs 08/12/23 04/29/24 Unknown tablet,extended release 24 hr magnesium glycinate 400 mg (4 x 100 mg magnesium) PO 10/06/23 04/29/24 Unknown DAILY #30 caps riboflavin (vitamin B2) 400 mg 400 mg PO DAILY #30 tabs 10/06/23 04/29/24 Unknown tablet temazepam 15 mg capsule (Restoril) 7.5 mg PO HS PRN Sleep 10/19/23 04/29/24 Unknown ketorolac 10 mg tablet 10 mg PO Q8H PRN pain 30 days #20 02/29/24 04/29/24 Unknown tabs cephalexin 500 mg capsule 500 mg PO QID 7 days #28 caps 04/24/24 04/29/24 Unknown doxycycline hyclate 100 mg capsule 100 mg PO BID 7 days #14 caps 04/24/24 04/29/24 Unknown amlodipine 10 mg tablet 0 mg PO DAILY 04/29/24 04/29/24 Unknown benazepril 40 mg tablet 40 mg PO DAILY 04/29/24 04/29/24 Unknown erenumab-aooe 70 mg/mL 70 mg subcut UD 04/29/24 04/29/24 Unknown subcutaneous auto-injector (Aimovig Autoinjector) escitalopram oxalate 10 mg tablet 10 mg PO DAILY 04/29/24 04/29/24 Unknown famotidine 20 mg tablet 20 mg PO DAILY 04/29/24 04/29/24 Unknown ondansetron HCl 4 mg tablet 4 mg PO TID PRN Nausea And Vomiting 04/29/24 04/29/24 Unknown ubrogepant 100 mg tablet (Ubrelvy) 100 mg PO UD PRN migraine headache 04/29/24 04/29/24 Unknown Active Medications Generic Name Dose Route Start Last Admin Trade Name Freq PRN Reason Stop Dose Admin Acetaminophen 650 mg 04/29/24 13:00 05/03/24 07:56 Acetaminophen 325 Mg Tab PO 05/29/24 12:59 650 mg Q4H PRN Administration pain/fever Amlodipine Besylate 10 mg 04/29/24 21:00 05/04/24 21:16 Amlodipine Besylate 5 Mg Tab PO 05/29/24 20:59 10 mg HS JONATHAN Administration Enalapril Maleate 20 mg 04/29/24 21:00 05/04/24 21:16 Enalapril Maleate 10 Mg Tab PO 05/29/24 20:59 20 mg HS JONATHAN Administration Enoxaparin Sodium 40 mg 05/01/24 10:15 05/05/24 08:06 Enoxaparin Inj 40 Mg/0.4 Ml Syr SQ 05/31/24 10:14 Not Given QAM JONATHAN Escitalopram Oxalate 10 mg 04/29/24 21:00 05/04/24 21:16 Escitalopram Oxalate 10 Mg Tab PO 05/29/24 20:59 10 mg HS JONATHAN Administration Famotidine 20 mg 04/29/24 21:00 05/04/24 21:16 Famotidine 20 Mg Tab PO 05/29/24 20:59 20 mg HS JONATHAN Administration Fexofenadine HCl 60 mg 05/02/24 21:00 05/05/24 08:11 Fexofenadine 60 Mg Tab PO 06/01/24 20:59 60 mg BID JONATHAN Administration Cefepime HCl 2,000 mg in 20 mls @ 5 mls/min 05/01/24 10:00 05/05/24 06:44 Maxipime 2000mg IV 05/08/24 09:59 5 mls/min Q8H JONATHAN Administration Protocol Daptomycin 175 mg/ Syringe 3.5 mls @ 1.75 mls/min 05/01/24 10:00 05/04/24 10:16 IV 05/08/24 09:59 1.75 mls/min Q24H JONATHAN Administration Protocol Magnesium Oxide 400 mg 04/30/24 09:00 05/05/24 08:11 Magnesium Oxide 400 Mg Tab PO 05/30/24 08:59 400 mg DAILY JONATHAN Administration Melatonin 3 mg 05/04/24 21:00 05/04/24 21:15 Melatonin 3 Mg Tab PO 06/03/24 20:59 3 mg HS JONATHAN Administration Metoprolol Succinate 25 mg 04/29/24 21:00 05/04/24 21:17 Metoprolol Succ 25mg Ext Rel Tab PO 05/29/24 20:59 25 mg HS JONATHAN Administration Polyethylene Glycol 17 gm 05/04/24 12:15 05/05/24 08:10 Polyethylene (Miralax) 17 Gm Pack PO 06/03/24 12:14 17 gm DAILY JONATHAN Administration Temazepam 7.5 mg 05/04/24 21:00 05/04/24 21:31 Temazepam 7.5 Mg Capsule PO 06/03/24 20:59 7.5 mg HS JONATHAN Administration (3) Cellulitis Laterality: right Site of cellulitis: extremity Site of cellulitis of extremity: upper extremity Qualified Code(s): L03.113 - Cellulitis of right upper limb
[2024-05-05] MEDS: ONDANSETRON 4 MG OD TAB PO STA (14:52)
[2024-05-05 14:55] VITALS: BP 146/77; PULSE 56; TEMP 97.9; O2SAT 97
[2024-05-05] MEDS: levoFLOXacin 750 MG TAB PO ONE (15:35)
[2024-05-05] MEDS: SULFAMETHOXAZOLE/TRIMETHOPRIM DS 800/160MG TAB PO ONE (16:12)
--- NOTE | 2024-05-05 17:29 | Discharge Summary ---
Discharge Summary Date of Service date of admission - April 29, 2024 date of discharge - May 05, 2024 Principal Dx & Hospital Course #1 = Principal Diagnosis (1) Cellulitis: RIGHT ARM skin tear, abrasions, and small hematoma/ecchymoses of right upper extremity following a fall in her driveway about 2+ weeks prior to admission. complicated by extensive right arm cellulitis that did not improve with oral Keflex and doxycycline as outpatient. Admitted for IV antibiotics and failure of outpatient Rx. Wound culture from the right arm -- negative. Blood cultures negative while hospitalized. Initially treated with IV vancomycin and ceftriaxone. Due to lack of improvement changed to IV cefepime/daptomycin on the AM of 05/01/24. Right arm IMPROVED with the cefepime/daptomycin. This would suggest that perhaps a gram negative pathogen (ie pseudomonas) may have contributed to her cellulitis. During the hospitalization general surgery was consulted. They advised CT of the RUE. CT obtained - no abscess, necrotizing process or other deeper infection were found. Surgical intervention was not needed on the right arm. Infectious diseases was consulted for recommendations regarding antibiotics at home. In light of the response to the cefepime/daptomycin ID recommended - * bactrim DS - 2 tabs BID until 05/11/24 * levaquin 750mg daily until 05/11/24 In addition the patient was seen by the wound care team. They advised daily Xeroform dressing changes as well as follow-up with the wound care center in [place]. Due to high dose bactrim usage and risk of hyperkalemia I recommended at discharge to HOLD her JODI inhibitor use. Outpatient BMP on 05/08/24 was advised to ensure normal creatinine & potassium. (2) Traumatic hematoma of right forearm: Wound care team advised Xeroform dressings daily. See #1 above. She will f/u with the Wound Care Center post-d/c. (3) Failure of outpatient treatment: as above (4) Hyponatremia: very mild chronic, going back several years stable at 134 at time of discharge (5) Abnormal EKG: EKG shows normal QTc interval HOWEVER, EKG shows inverted anterior T waves in V1, V2, and V3 as well as III & AVF patient does not have any personal h/o CAD however, she is a prior smoker and her father had CAD it is possible that these T wave inversions are HTN related but in light of CAD risk factors consider outpatient echo and/or stress test Plan HTN - Continue metoprolol succ daily, continue amlodipine; HOLD JODI inhibitor due to high-dose bactrim usage GERD - continue famotidine Anxiety - continue Lexapro VTE Prophylaxis - enoxaparin 40mg daily utilized while here Notes For Next Care Provider 1. daily Xeroform dressing changes 2. f/u [facility] [place] for ongoing wound care 3. strongly consider echocardiogram and/or stress test due to abnormal EKG Medication Changes From Visit bactrim DS - 2 tabs BID until 05/11/24 levaquin 750mg daily until 05/11/24 HOLD benazepril until BMP is repeated as outpatient to ensure normal Cr & K levels Admission HPI Per Admitting Provider Ondina Steinberg is a 73 year old female who presents to the ER with right arm erythema and swelling. No fever or chills. This started after a fall on 04/17 and she scraped her arm and tore her skin. No loss of consciousness or hitting her head. She came to the ER on 04/24 and was diagnosed with cellulitis and started on doxycycline and Keflex which she reports taking as prescribed. Despite this her erythema and swelling has progressed over the last few days and now with a small bloody blister present with some pus formation. Discharge Exam gen - NAD, pleasant, looks well neck - no JVD mouth - MMM heart - RRR, s1 s2, no murmur lungs - CTA b/l abd - soft NT ND BS+ skin - right arm pink erythema from just superior to the right elbow down to the right wrist region - continues to improve daily; pink skin continues to fade in intensity; there is no abscess; previous thick dry skin near the antecubital region of the right elbow (ventral surface) as well as thick, scaly dry skin near the right wrist - resolved; there is a skin tear in a linear configuration distal to the right elbow with no drainage; 1/2 dollar size traumatic ecchymoses is open and having some draining serous fluid - wound bed of this lesion is beefy red/healthy appearing there are prior purple demarkation dots on the proximal upper right arm; the cellulitis/erythema continues to retreat from this demarkation line musculo - continued full ROM of right elbow and right wrist without pain Discharge Plan Discharge Items Patient Disposition: Home - Self-Care Reason For Visit: CELLULITIS Discharge Diagnosis: 1. severe cellulitis of right arm - improving 2. multiple right arm wounds - improving 3. traumatic hematoma of right arm 4. high blood pressure 5. abnormal EKG - outpatient work-up recommended Activity: Resume your previous activity Activity Comment: as tolerated Bathing Comment: Keep right arm clean/covered during showers Driving/Machine Use: Resume 1 day after discharge Non-emergency contact: Primary Care Provider Call non-emergency contact if: you have any medication questions, you have a fever, your wound has increased redness, your wound has increased drainage and your wound pain has increased Follow-up/Referrals: Chey Padilla DO, FACEP [Physician] - 05/12/24 10:40 am (wound care clinic) Delores Fraser MD [Primary Care Provider] - 05/08/24 11:20 am (11:05 come in for 11:20 appointment) Diet: Regular Addtl Attending Provider Instructions: Leroy Ordoñez were hospitalized due to a severe skin infection of the right arm. This is called "cellulitis." You had several wounds as well as a small hematoma that ultimately ruptured. Your infection slowly improved with IV antibiotics. General surgery saw you early in the stay and fortunately there was nothing that required debridement or surgery. Wound care was consulted and have recommended specific dressings for your wounds - see below. Infectious diseases saw you in consult on 05/05 and have recommended ~1 week more of 2 oral antibiotics. Recommendations - 1. Wound care instructions - see dedicated section below. 2. Antibiotics - * levofloxacin 750mg once daily x 6 more days, first dose tomorrow on 05/06/24 * trimethoprim-sulfa -- 2 tablets twice daily x 6 more days, first dose tomorrow morning on 05/06/24 * most common side effect of both antibiotics - diarrhea * levofloxacin can cause tendonitis of your achilles tendon - watch carefully for pain/swelling of either ankle * trimethoprim-sulfa can raise your potassium levels - please have Dr Fraser check your kidney function and potassium levels at time of hospital follow-up 3. Take an vuka-cqz-puewghy probiotic of your choosing for about a week. Eat a serving or 2 of yogurt every day for about a week. This may help prevent diarrhea. 4. Your EKG shows some abnormalities that could be due to long-standing high blood pressure. It could also indicate other underlying heart problems. Please talk to Dr Fraser about getting an "echocardiogram" to look at your heart in more detail. 5. for nausea/vomiting - ondansetron 4mg every 6 hours as needed. 6. HOLD your benazepril until you have your blood work rechecked this coming week. 7. You may use boyz-dic-ynqupok ibuprofen or tylenol as needed for mild aches/pains. 8. Recommend no alcohol consumption until you are off all antibiotics. Return to [facility] if - * you have fever over 100 degrees * you have severe diarrhea (3 or more liquid stools over a 24-hour period) * you have worsening redness, swelling, pain, drainage, odor, etc from the right arm * you have pain or swelling over either achilles of your ankles * any other concerns It was our pleasure to care for you! Happy holidays :) Dr Pederson Pending Studies at Discharge: No Stand-Alone Forms: My [facility], Smoking Cessation Medications and DC Order Prescriptions: New fexofenadine [Wal-Fex Allergy] 60 mg Tablet 60 mg PO BID PRN (Reason: itching) Qty: 30 0RF Rx Instructions: purchase njmu-rjo-xsnnygl levofloxacin 750 mg tablet 750 mg PO DAILY 6 Days Qty: 6 0RF Rx Instructions: start 05/06/24; last day of treatment 05/11/24. sulfamethoxazole-trimethoprim [Bactrim DS] 800-160 mg tablet 2 tab PO BID Qty: 24 0RF Rx Instructions: start AM of 05/06. finish on PM of 05/11/24. Continued zoledronic pgdm-ojecjajh-pzgfa [Reclast] 5 mg/100 mL piggyback 5 ea IV YEARLY Qty: 100 0RF Rx Instructions: Unable to verify w/ pt or pharmacy at this date/time. metoprolol succinate 25 mg tablet extended release 24 hr 25 mg PO DAILY Qty: 90 3RF Rx Instructions: Unable to verify w/ pt or pharmacy at this date/time. cholecalciferol (vitamin D3) 25 mcg (1,000 unit) capsule 25 mcg PO QPM Rx Instructions: Unable to verify OTC meds at this date/time. riboflavin (vitamin B2) 400 mg tablet 400 mg PO DAILY Qty: 30 0RF Rx Instructions: Unable to verify OTC meds at this date/time. magnesium glycinate 100 mg magnesium capsule 400 mg PO DAILY Qty: 30 0RF Rx Instructions: Unable to verify OTC meds at this date/time. temazepam [Restoril] 15 mg capsule 7.5 mg PO HS PRN (Reason: Sleep) Rx Instructions: Unable to verify w/ pt or pharmacy at this date/time. famotidine 20 mg tablet 20 mg PO DAILY Rx Instructions: Unable to verify w/ pt or pharmacy at this date/time. escitalopram oxalate 10 mg tablet 10 mg PO DAILY Aimovig Autoinjector 70 mg/mL auto-injector 70 mg subcut UD Rx Instructions: Every 28 days Ubrelvy 100 mg tablet 100 mg PO UD PRN (Reason: migraine headache) Rx Instructions: Take 1 tab at onset of attack. May repeat dose in 2 hours if pain persists. Limit 200mg in 24 hours. amlodipine 10 mg tablet 10 mg PO DAILY Qty: 0 0RF Rx Instructions: Pt states she's still taking but last filled 10/2023 x90 day supply. Original Directions: 10mg by mouth daily Changed ondansetron 4 mg tablet,disintegrating 4 mg PO Q6H PRN (Reason: nausea and vomiting) Qty: 14 1RF Held benazepril 40 mg tablet 40 mg PO DAILY Hold Instructions: hold unless Dr Fraser advises you to resume Rx Instructions: Pt states still taking but last filled 12/2023 x90 day supply Discontinued ketorolac 10 mg tablet 10 mg PO Q8H PRN (Reason: pain) 30 Days Qty: 20 1RF Rx Instructions: Unable to verify w/ pt or pharmacy at this date/time. cephalexin 500 mg capsule 500 mg PO QID 7 Days Qty: 28 0RF Rx Instructions: Start Date 04/24/24 x7 day supply doxycycline hyclate 100 mg capsule 100 mg PO BID 7 Days Qty: 14 0RF Rx Instructions: Start Date 04/24/24 x7 day supply Discharge Orders: Discharge Order (Routine); Ordered 05/05/24 Ordered By: Carl Pederson Admission Data Admit Date/Time: 04/29/24 11:28 Attending Provider: Carl Pederson Admit Provider: Carl Choi Primary Care Provider: Delores Fraser Other Providers: Olvin Livingston; Carl Choi; Treva Lloyd; Nicole José; Kenya London; Gregory Cullen; Emelia Comer; Daisha Ma Other Interventions: Discharge Summary Assessment (RN) Last Done: 05/05/24 16:50 Hospital Stay Data Consultations General Surgery Infectious Diseases Wound Care Diagnostic Imagining Performed Elbow X-Ray 04/29/24 10:00 EXAM: Radiographs of the Right Elbow Complete 3 Views INDICATION: Fall 10 days ago. Pain. TECHNIQUE: Frontal, lateral and oblique views of the right elbow. COMPARISON: No relevant prior studies available. FINDINGS: Bones/joints: No fracture, erosion or dislocation. Soft tissues: Diffuse soft tissue swelling noted. No soft tissue gas collection or radiopaque foreign body. There is a 2.2 cm diameter soft tissue nodule centered in the skin of the forearm at the level of the proximal radial shaft. IMPRESSION: 1. No fracture. 2. Soft tissue swelling. Nodular opacity associated with the skin lateral proximal forearm. Correlate clinically for mass versus hematoma. ACT 112: Negative or not required by law. Electronically signed by Desiree Vega 04-29-2024 11:08 AM Forearm X-Ray 04/29/24 10:00 EXAM: Radiographs of the Right Forearm 2 Views INDICATION: Fall 10 days ago. TECHNIQUE: Frontal and lateral views of the right forearm. COMPARISON: No relevant prior studies available. FINDINGS: Bones/joints: There is mild narrowing of the radiocarpal joint. There is moderate primary osteoarthritic changes of the first carpometacarpal joint. Soft tissues: 2 cm nodular cutaneous opacity mid forearm. Correlate clinically for cutaneous nodule versus something upon the skin. Diffuse soft tissue swelling noted. There is no soft tissue gas collection. No radiopaque foreign body. IMPRESSION: 1. No forearm fracture. 2. 2 cm nodular cutaneous opacity mid forearm. Correlate clinically for cutaneous nodule versus something upon the skin. ACT 112: Negative or not required by law. Electronically signed by Desiree Vega 04-29-2024 11:[address] 05/01/24 15:53 INDICATION: Fall. Evaluate for abscess. COMPARISON: Radiograph from 04/29/2024. TECHNIQUE: Axial CT images of the right forearm were obtained without IV contrast administration. Coronal and sagittal reformations were reviewed. FINDINGS: No acute fracture or dislocation. No lytic or blastic bony lesions seen. No evidence of cortical erosion. Mild degenerative changes in the wrist/carpal bones with joint space loss. Soft tissue swelling. No soft tissue gas or fluid collection seen on this noncontrast study. Specifically, no correlation/fluid collection with left nodularity seen on prior radiograph. IMPRESSION: 1. No acute osseous abnormality evident. 2. Soft tissue swelling. No soft tissue gas or fluid collection seen on this noncontrast study. Electronically signed by Matias Dixon 05-01-2024 4:57 PM Pending Results Patient Have Any Pending Studies at Discharge: No Discharge Instructions Given to Patient (Per Discharging Provider) Mrs Steinberg, Leroy were hospitalized due to a severe skin infection of the right arm. This is called "cellulitis." You had several wounds as well as a small hematoma that ultimately ruptured. Your infection slowly improved with IV antibiotics. General surgery saw you early in the stay and fortunately there was nothing that required debridement or surgery. Wound care was consulted and have recommended specific dressings for your wounds - see below. Infectious diseases saw you in consult on 05/05 and have recommended ~1 week more of 2 oral antibiotics. Recommendations - 1. Wound care instructions - see dedicated section below. 2. Antibiotics - * levofloxacin 750mg once daily x 6 more days, first dose tomorrow on 05/06/24 * trimethoprim-sulfa -- 2 tablets twice daily x 6 more days, first dose tomorrow morning on 05/06/24 * most common side effect of both antibiotics - diarrhea * levofloxacin can cause tendonitis of your achilles tendon - watch carefully for pain/swelling of either ankle * trimethoprim-sulfa can raise your potassium levels - please have Dr Fraser check your kidney function and potassium levels at time of hospital follow-up 3. Take an binm-cng-sgeufxk probiotic of your choosing for about a week. Eat a serving or 2 of yogurt every day for about a week. This may help prevent diarrhea. 4. Your EKG shows some abnormalities that could be due to long-standing high blood pressure. It could also indicate other underlying heart problems. Please talk to Dr Fraser about getting an "echocardiogram" to look at your heart in more detail. 5. for nausea/vomiting - ondansetron 4mg every 6 hours as needed. 6. HOLD your benazepril until you have your blood work rechecked this coming week. 7. You may use ahht-bwh-icternw ibuprofen or tylenol as needed for mild aches/pains. 8. Recommend no alcohol consumption until you are off all antibiotics. Return to [facility] if - * you have fever over 100 degrees * you have severe diarrhea (3 or more liquid stools over a 24-hour period) * you have worsening redness, swelling, pain, drainage, odor, etc from the right arm * you have pain or swelling over either achilles of your ankles * any other concerns It was our pleasure to care for you! Happy holidays :) Dr Pederson Total Time Total Time Spent Total Time Spent (In Minutes): 45 Coding Level of Care Code 66070 INP/OBS DISCH >30 MIN Diagnoses Cellulitis of right upper extremity L03.113 Laterality: right Site of cellulitis: extremity Site of cellulitis of extremity: upper extremity Traumatic hematoma of right forearm S50.11XA Failure of outpatient treatment Z78.9 Hyponatremia E87.1 Abnormal EKG R94.31
--- NOTE | 2024-05-06 08:45 | Electrocardiogram Report ---
Test Reason : Blood Pressure : */* mmHG Vent. Rate : 51 BPM Atrial Rate : 51 BPM P-R Int : 184 ms QRS Dur : 68 ms QT Int : 462 ms P-R-T Axes : 53 -22 -29 degrees QTcB Int : 425 ms Sinus bradycardia Poor R wave progression, consider anterior TN vs. lead placement vs. LVH Diffuse Nonspecific T wave abnormality Abnormal ECG When compared with ECG of 05-Mar-2023 08:44, No significant change Confirmed by Bon Valdovinos ([id number]) on 05/06/2024 8:44:55 AM Referred By: REFERRED SELF Confirmed By: Bon Valdovinos
== END 2024-05-05 17:58 | disposition home or self-care (01) | DRG 603 ==
LOC: ED 09:20 → 3E 11:28 → SUATTDRO 11:28 → 3E 12:56